=== PATIENT | female | born 1980 | race African-American/Black ===

== ENCOUNTER 2018-01-09 15:54 | Emergency (ER) | payer OTHER ==
[~2018-01-09] VITALS: Ht 152.4 cm; Wt 51.3 kg
[2018-01-09 19:13] LABS: Basophils % (auto) 0.4 % (0.0-2.0); Eosinophils # (auto) 0 uL; Mean Corpuscular Volume 102.1 fL (80.0-100.0)
[2018-01-09 19:15] LABS: Basophils # (auto) 0 uL; Hematocrit 39.2 % (36.0-46.0); Lymphocytes # (auto) 0.9 uL; Lymphocytes % (auto) 6.8 % (10.0-50.0); Mean Corpuscular Hemoglobin 33.9 pg (28.0-32.0); Mean Corpuscular Hgb Conc. 33.2 g/dL (32.0-36.0); Monocytes # (auto) 0.7 uL; Monocytes % (auto) 5.4 % (0.0-12.0); Neutrophils # (auto) 11.7 uL; Neutrophils % (auto) 87.4 % (37.0-80.0); Platelet Count (auto) 142 10^3/uL (140-450); Red Blood Cells 3.84 10^6/uL (4.0-5.20); Red Cell Distribution Width 12.6 % (11.8-14.3); White Blood Cell 13.3 10^3/uL (4.4-10.8)
[2018-01-09 19:34] LABS: Albumin 3.7 g/dL (3.4-5.0); BUN/Creatinine Ratio 22.2; Bilirubin, Total 0.3 mg/dL (0.2-1.0); Calcium 8.5 mg/dL (8.5-10.1); Potassium 3.5 mmol/L (3.5-5.1); Total Protein 7.5 g/dL (6.4-8.2)
[2018-01-09] MEDS ORDERED: LEVETIRACETAM INJ 1,000 MG in D5W 5% 100 ML IV ONE (19:45)
[2018-01-09] MEDS ORDERED: SODIUM CHLORIDE 0.9% 1,000 ML IV ONE (19:45)
[2018-01-09 21:59] LABS: Urine Bacteria FEW /hpf (None Seen); Urine Blood 2+ /uL (Negative); Urine Mucus FEW (None Seen); Urine Specific Gravity 1.015 (1.001-1.035); Urine WBC 439 /hpf (0 - 5); Urine WBC Clumps PRESENT /hpf (None Seen)
[2018-01-09 23:00] VITALS: BP 107/58
== END 2018-01-09 23:25 | disposition home or self-care (01) ==
LOC: ER 15:54 → EDBD 15:54 → ER 23:25
DX: G40.909 Epilepsy, unspecified, not intractable, without status epilepticus (principal); N39.0 Urinary tract infection, site not specified; Z87.820 Personal history of traumatic brain injury; Z46.82 Encounter for fitting and adjustment of non-vascular catheter; Z98.2 Presence of cerebrospinal fluid drainage device
CPT/HCPCS: 36415; 51702; 70450; 80053; 81001; 85025; 93005; 96365; 99285; J1953; J7030; J7060

== ENCOUNTER 2020-02-26 00:47 | Inpatient (IN) | payer OTHER ==
[~2020-02-26] VITALS: Ht 162.6 cm; Wt 69.2 kg
[2020-02-26] MEDS ORDERED: SODIUM CHLORIDE 0.9% 1,000 ML IVB ONE (01:14)
[2020-02-26 03:01] LABS: Basophils # (auto) 0.1 10 ^3/uL (0-0.2); Basophils % (auto) 0.5 % (0.0-2.0); Eosinophils # (auto) 0 10 ^3/uL (0-0.8); Eosinophils % (auto) 0.2 % (0.0-7.0); Hematocrit 38.7 % (36.0-46.0); Hemoglobin 12.6 g/dL (12.2-16.2); Lymphocytes # (auto) 1.3 10 ^3/uL (0.4-5.4); Lymphocytes % (auto) 8.5 % (10.0-50.0); Mean Corpuscular Hemoglobin 32.1 pg (28.0-32.0); Mean Corpuscular Hgb Conc. 32.6 g/dL (32.0-36.0); Mean Corpuscular Volume 98.4 fL (80.0-100.0); Monocytes # (auto) 0.7 10 ^3/uL (0-1.3); Monocytes % (auto) 4.8 % (0.0-12.0); Neutrophils # (auto) 13.1 10 ^3/uL (1.6-8.6); Platelet Count (auto) 266 10^3/uL (140-450); Red Blood Cells 3.93 10^6/uL (4.0-5.20); Red Cell Distribution Width 13.8 % (11.8-14.3); White Blood Cell 15.3 10^3/uL (4.4-10.8)
[2020-02-26 03:21] LABS: Alanine Aminotransferase 24 U/L (13-56); Albumin 3.2 g/dL (3.4-5.0); Anion Gap 4 (5-15); Aspartate Aminotransferase 18 U/L (15-37); BUN/Creatinine Ratio 32.5; Blood Urea Nitrogen 27 mg/dL (7-18); Calcium 8.3 mg/dL (8.5-10.1); Carbon Dioxide 26 mmol/L (21-32); Chloride 107 mmol/L (98-107); GFR African American 98 mL/min; GFR Non-African American 81 mL/min; Glucose 86 mg/dL (74-106); Magnesium 2.2 mg/dL (1.6-2.6); Potassium 3.9 mmol/L (3.5-5.1); Sodium 137 mmol/L (136-145)
[2020-02-26 03:26] LABS: Alkaline Phosphatase 74 U/L (45-117); Bilirubin, Total 0.2 mg/dL (0.2-1.0); Total Protein 7.5 g/dL (6.4-8.2)
[2020-02-26] MEDS: SODIUM CHLORIDE 0.9% 1,000 ML IV SCH ×2 (05:26→17:22)
[2020-02-26] MEDS ORDERED: MORPHINE SULF INJ 2 MG/ML SYRINGE 1ML IV PRN (05:30)
[2020-02-26] MEDS ORDERED: LORazepam 0.5 MG TAB PO PRN (05:30)
[2020-02-26] MEDS ORDERED: DOCUSATE SOD 100 MG CAP PO PRN (05:30)
[2020-02-26] MEDS ORDERED: METOPROLOL TARTRATE 1MG/1ML-5ML VIAL IV ONE (05:30)
[2020-02-26] MEDS ORDERED: ONDANSETRON HCL 4 MG/2 ML VIAL IV PRN (05:30)
[2020-02-26] MEDS ORDERED: ALBUTEROL SULF 2.5 MG/0.5ML(0.5%) NEB SOLN NEB PRN (05:30)
[2020-02-26] MEDS ORDERED: IPRATROPIUM BROM 0.5 MG/2.5ML INH SOL NEB PRN (05:30)
[2020-02-26] MEDS ORDERED: levETIRAcetam 500 MG/5ML INJ IV ONE (06:21)
[2020-02-26] MEDS ORDERED: LORazepam 2MG/ML-1ML VIAL IV PRN (09:00)
[2020-02-26 09:57] VITALS: BP 112/72
[2020-02-26] MEDS: ZONISAMIDE 300 MG PO SCH (10:00)
[2020-02-26] MEDS: cefTRIAXone 1GM/50ML D5W 50 ML IV SCH (10:19)
[2020-02-26] MEDS ORDERED: ZONI100C43 PO (10:25)
[2020-02-26] MEDS ORDERED: LAMO150T2 PO (10:25)
[2020-02-26] MEDS ORDERED: GUAI600T23 PO (10:25)
[2020-02-26] MEDS ORDERED: GABA300C10 PO (10:25)
[2020-02-26] MEDS ORDERED: DIVA500T4 PO (10:25)
[2020-02-26 10:35] VITALS: BP 107/78
[2020-02-26 11:07] LABS: BUN/Creatinine Ratio 38.5; Calcium 8.6 mg/dL (8.5-10.1); Potassium 3.5 mmol/L (3.5-5.1)
[2020-02-26 12:00] VITALS: BP 88/65
[2020-02-26] MEDS: lamoTRIgine 100 MG TAB PO SCH ×2 (12:57→21:41)
[2020-02-26] MEDS: GABAPENTIN 300 MG CAP PO SCH ×2 (15:01→21:40)
[2020-02-26 17:00] VITALS: BP 104/73
[2020-02-26 21:04] LABS: Urine Bacteria FEW /hpf (None Seen); Urine Blood 1+ /uL (Negative); Urine Hyaline Cast FEW /lpf (0 - 2); Urine Specific Gravity 1.009 (1.001-1.035); Urine WBC 356 /hpf (0 - 5); Urine WBC Clumps PRESENT /hpf (None Seen)
[2020-02-26 21:34] LABS: Basophils # (auto) 0 10 ^3/uL (0-0.2); Basophils % (auto) 0.3 % (0.0-2.0); Eosinophils # (auto) 0.2 10 ^3/uL (0-0.8); Eosinophils % (auto) 2.2 % (0.0-7.0); Hematocrit 39.4 % (36.0-46.0); Hemoglobin 12.4 g/dL (12.2-16.2); Lymphocytes # (auto) 2.1 10 ^3/uL (0.4-5.4); Lymphocytes % (auto) 21.6 % (10.0-50.0); Mean Corpuscular Hemoglobin 32.3 pg (28.0-32.0); Mean Corpuscular Hgb Conc. 31.5 g/dL (32.0-36.0); Mean Corpuscular Volume 102.7 fL (80.0-100.0); Monocytes # (auto) 0.8 10 ^3/uL (0-1.3); Monocytes % (auto) 8.2 % (0.0-12.0); Neutrophils # (auto) 6.5 10 ^3/uL (1.6-8.6); Neutrophils % (auto) 67.7 % (37.0-80.0); Nucleated Red Blood Cells % 0.1 %; Platelet Count (auto) 211 10^3/uL (140-450); Red Blood Cells 3.84 10^6/uL (4.0-5.20); Red Cell Distribution Width 14.4 % (11.8-14.3); White Blood Cell 9.6 10^3/uL (4.4-10.8)
[2020-02-26 21:49] LABS: Albumin 3.1 g/dL (3.4-5.0); Calcium 8.4 mg/dL (8.5-10.1); Magnesium 2.4 mg/dL (1.6-2.6); Potassium 3.9 mmol/L (3.5-5.1)
[2020-02-26 21:52] LABS: BUN/Creatinine Ratio 24.6; Bilirubin, Total 0.2 mg/dL (0.2-1.0); Total Protein 7.2 g/dL (6.4-8.2)
[2020-02-26 22:12] VITALS: BP 98/50
[2020-02-27] MEDS: SODIUM CHLORIDE 0.9% 1,000 ML IV SCH ×3 (02:00→21:26)
[2020-02-27 05:27] VITALS: BP 108/74
[2020-02-27] MEDS: GABAPENTIN 300 MG CAP PO SCH ×3 (05:53→22:12)
[2020-02-27] MEDS: ZONISAMIDE 300 MG PO SCH (08:18)
[2020-02-27 09:04] VITALS: BP 106/69
[2020-02-27] MEDS: cefTRIAXone 1GM/50ML D5W 50 ML IV SCH (10:53)
[2020-02-27] MEDS: lamoTRIgine 100 MG TAB PO SCH ×2 (10:53→22:11)
[2020-02-27 12:12] VITALS: BP 101/62
[2020-02-27 16:51] VITALS: BP 99/71
[2020-02-27] MEDS: HYDROcodone-ACET 5/325MG TAB PO PRN (21:15)
[2020-02-27 22:22] VITALS: BP 106/70
[2020-02-28] MEDS: ACETAMINOPHEN 325 MG TAB PO PRN (00:10)
[2020-02-28 04:57] VITALS: BP 97/68
[2020-02-28] MEDS: GABAPENTIN 300 MG CAP PO SCH ×3 (05:53→22:35)
[2020-02-28] MEDS: SODIUM CHLORIDE 0.9% 1,000 ML IV SCH ×2 (05:53→17:11)
[2020-02-28 09:00] VITALS: BP 97/70
[2020-02-28] MEDS: ZONISAMIDE 300 MG PO SCH (10:00)
[2020-02-28] MEDS: lamoTRIgine 100 MG TAB PO SCH ×2 (10:18→22:35)
[2020-02-28] MEDS: cefTRIAXone 1GM/50ML D5W 50 ML IV SCH (10:18)
[2020-02-28 12:59] LABS: Basophils # (auto) 0.1 10 ^3/uL (0-0.2); Basophils % (auto) 0.8 % (0.0-2.0); Eosinophils # (auto) 0.1 10 ^3/uL (0-0.8); Eosinophils % (auto) 2.2 % (0.0-7.0); Hemoglobin 11.1 g/dL (12.2-16.2); Lymphocytes # (auto) 2.3 10 ^3/uL (0.4-5.4); Lymphocytes % (auto) 34.8 % (10.0-50.0); Mean Corpuscular Hemoglobin 32.4 pg (28.0-32.0); Mean Corpuscular Hgb Conc. 32.6 g/dL (32.0-36.0); Mean Corpuscular Volume 99.5 fL (80.0-100.0); Monocytes # (auto) 0.5 10 ^3/uL (0-1.3); Monocytes % (auto) 7.1 % (0.0-12.0); Neutrophils # (auto) 3.7 10 ^3/uL (1.6-8.6); Neutrophils % (auto) 55.1 % (37.0-80.0); Platelet Count (auto) 205 10^3/uL (140-450); Red Blood Cells 3.42 10^6/uL (4.0-5.20); Red Cell Distribution Width 14.3 % (11.8-14.3); White Blood Cell 6.7 10^3/uL (4.4-10.8)
[2020-02-28 13:00] VITALS: BP 92/65
[2020-02-28 13:15] LABS: BUN/Creatinine Ratio 14.5; Potassium 3.9 mmol/L (3.5-5.1)
[2020-02-28 17:00] VITALS: BP 104/62
[2020-02-28] MEDS ORDERED: METOPROLOL TARTRATE 1MG/1ML-5ML VIAL IV PRN (19:15)
[2020-02-28 22:00] VITALS: BP 102/64
[2020-02-29] MEDS: ACETAMINOPHEN 325 MG TAB PO PRN (01:23)
[2020-02-29] MEDS: SODIUM CHLORIDE 0.9% 1,000 ML IV SCH ×2 (03:26→16:16)
[2020-02-29 05:00] VITALS: BP 101/61
[2020-02-29] MEDS: GABAPENTIN 300 MG CAP PO SCH ×2 (05:57→16:17)
[2020-02-29] MEDS: HYDROcodone-ACET 5/325MG TAB PO PRN ×2 (07:24→16:17)
[2020-02-29] MEDS: cefTRIAXone 1GM/50ML D5W 50 ML IV SCH (08:36)
[2020-02-29] MEDS: ZONISAMIDE 300 MG PO SCH (08:38)
[2020-02-29] MEDS: lamoTRIgine 100 MG TAB PO SCH (08:39)
[2020-02-29 08:43] VITALS: BP 97/59
[2020-02-29 13:00] VITALS: BP 101/59
[2020-02-29 15:04] VITALS: BP 101/59
[2020-02-29 17:00] VITALS: BP 101/61
== END 2020-02-29 16:00 | disposition home or self-care (01) | DRG 101 ==
LOC: EDBD 00:47 → ER 00:48 → TELE 00:49 → TELE-EAST 09:25
PROVIDERS: ADMIT Hospitalist; ATTEND Internal Medicine
DX: G40.201 Localization-related (focal) (partial) symptomatic epilepsy and epileptic syndromes with complex partial seizures, not intractable, with status epilepticus (principal); E44.0 Moderate protein-calorie malnutrition; K59.00 Constipation, unspecified; D72.829 Elevated white blood cell count, unspecified; F09 Unspecified mental disorder due to known physiological condition; J45.909 Unspecified asthma, uncomplicated; Z79.899 Other long term (current) drug therapy; Z74.01 Bed confinement status; Z87.820 Personal history of traumatic brain injury; Z91.19 Patient's noncompliance with other medical treatment and regimen; Z98.2 Presence of cerebrospinal fluid drainage device; Z68.26 Body mass index [BMI] 26.0-26.9, adult
CPT/HCPCS: 36415; 70450; 71045; 74018; 80048; 80053; 80164; 81001; 81025; 83735; 84484; 85025; 87086; 93005; 96361; 96365; G0378; J0696; J7060

== ENCOUNTER 2023-10-10 11:51 | Inpatient (IN) | payer OTHER, MEDICAID ==
[~2023-10-10] VITALS: Ht 167.6 cm; Wt 83.2 kg
[~2023-10-10 11:51] MED LIST: ALBU0.084 IN; BACL10TA PO; BACL20TA PO; DIVA-93 PO; DONETAB6 PO; GABA-1250 PO; GABA-1308 PO; GUAI600T23 PO; HYDR-2549 PO; LACT10SO32 PO; LAMO150T2 PO; LAMO150T26 PO; LORA-1123 PO; LUBI24CA6 PO; MIRT1TAB39 PO; PSEU120T18 PO; QUET150T2 PO; QUET1TAB11 PO; ZONI100C43 PO; [UNRECOGNIZED DRUG - CODE] PO
[2023-10-10] MEDS ORDERED: ACETAMINOPHEN 650 MG RECT SUPP PR ONE (12:30)
[2023-10-10 12:45] VITALS: PULSE 138; RESP 26; O2SAT 96
[2023-10-10] MEDS ORDERED: cefTRIAXone 1GM/50ML D5W 50 ML IV ONE (12:45)
[2023-10-10] MEDS ORDERED: AZITHROMYCIN 500MG/ 250ML 250 ML IV ONE (12:45)
[2023-10-10] MEDS ORDERED: SODIUM CHLORIDE 0.9% 1,000 ML IV ONE (12:45)
[2023-10-10] MEDS ORDERED: SODIUM CHLORIDE 0.9% 500 ML IVB ONE (12:45)
[2023-10-10 13:25] LABS: Basophils # (auto) 0 10 ^3/uL (0-0.2); Basophils % (auto) 0.3 % (0.0-2.0); Eosinophils # (auto) 0 10 ^3/uL (0-0.8); Eosinophils % (auto) 0.1 % (0.0-7.0); Hemoglobin 14.2 g/dL (12.2-16.2); Lymphocytes # (auto) 1.7 10 ^3/uL (0.4-5.4); Lymphocytes % (auto) 19.4 % (10.0-50.0); Mean Corpuscular Hemoglobin 31.7 pg (28.0-32.0); Mean Corpuscular Hgb Conc. 32.4 g/dL (32.0-36.0); Monocytes % (auto) 11.3 % (0.0-12.0); Neutrophils % (auto) 68.9 % (37.0-80.0); Nucleated Red Blood Cells % 0.4 %; Red Blood Cells 4.48 10^6/uL (4.0-5.20); Red Cell Distribution Width 14.7 % (11.8-14.3); White Blood Cell 8.7 10^3/uL (4.4-10.8)
[2023-10-10 13:44] LABS: Albumin 3.7 g/dL (3.2-4.8); Alkaline Phosphatase 66 U/L (46-116); Anion Gap 10 (5-15); Aspartate Aminotransferase 26 U/L (13-40); BUN/Creatinine Ratio 13.7 (10.0-20.0); Blood Urea Nitrogen 20 mg/dL (9-23); Calcium 8.3 mg/dL (8.7-10.4); Carbon Dioxide 22 mmol/L (20-30); Chloride 105 mmol/L (98-107); Glucose 99 mg/dL (74-106); Magnesium 2.2 mg/dL (1.6-2.6); Potassium 4.1 mmol/L (3.5-5.1); Sodium 137 mmol/L (136-145)
[2023-10-10 13:45] LABS: Bilirubin, Total < 0.2 mg/dL (0.2-1.0); Total Protein 7.7 g/dL (5.7-8.2)
[2023-10-10 13:49] LABS: Alanine Aminotransferase < 9 U/L (7-40); INR 1.11 (0.9-1.15); Partial Thromboplastin Time 29.9 SEC (24.5-34.5); Prothrombin Time 11.8 sec (9.3-11.8)
[2023-10-10 15:26] LABS: COVID19 ANTIGEN SOFIA FIA POSITIVE (NEGATIVE)
[2023-10-10 15:28] LABS: Urine Bacteria MOD /hpf (None Seen); Urine Blood 3+ /uL (Negative); Urine Clarity CLOUDY (Clear); Urine Color Yellow (Yellow); Urine Protein, UAD 2+ (Negative); Urine Specific Gravity 1.017 (1.001-1.035); Urine Urobilinogen Normal (Negative); Urine WBC 2293 /hpf (0 - 5); Urine WBC Clumps PRESENT /hpf (None Seen); Urine pH 6.5 (5.0-8.0)
[2023-10-10 15:30] LABS: Amphetamine Screen, Urine Neg (NEGATIVE); Barbiturate Scree,Urine Neg (NEGATIVE); Benzodiazephine Screen, Urine Neg (NEGATIVE); Cannabinoid Screen, Urine Neg (NEGATIVE); Cocaine Screen, Urine Neg (NEGATIVE); Opiate Scree,Urine Neg (NEGATIVE); Phencyclidine Screen, Urine Neg (NEGATIVE)
[2023-10-10] MEDS ORDERED: MORPHINE SULFATE INJ 2 MG/ml SYRG IV PRN (18:00)
[2023-10-10] MEDS ORDERED: ONDANSETRON HCL 4 MG/2 ML VIAL IV PRN (18:00)
[2023-10-10] MEDS ORDERED: REMDESIVIR PER PHARMACY 0 ML IV SCH (18:00)
[2023-10-10] MEDS ORDERED: NITROGLYCERIN 0.4 MG SL TAB SL PRN (18:00)
[2023-10-10] MEDS: SODIUM CHLORIDE 0.9% 1,000 ML IV SCH (18:37)
[2023-10-10] MEDS ORDERED: LORazepam 2MG/ML-1ML VIAL IV PRN (18:45)
[2023-10-10 19:43] LABS: Base Excess -1.6 mmol/L (-2.0-2.0)
[2023-10-10] MEDS ORDERED: ETOMIDATE (2MG/ML) 20ML VIAL IV ONE ×3 (20:03→22:30)
[2023-10-10] MEDS ORDERED: ROCURONIUM 10MG/ML 10ML VIAL IV ONE ×3 (20:03→22:30)
[2023-10-10] MEDS ORDERED: MIDAZOLAM DRIP 50 mg/50mL 50 ML IV ONE (20:07)
[2023-10-10] MEDS ORDERED: NOREPINEPHRINE 8 MG/250ML KIT 250 ML IV ONE (20:12)
[2023-10-10] MEDS: NOREPINEPHRINE 8 MG/250ML KIT 250 ML IV SCH (20:26)
[2023-10-10] MEDS: MIDAZOLAM DRIP 50 mg/50mL 50 ML IV SCH (20:45)
[2023-10-10 21:09] VITALS: BP 119/66; PULSE 133; RESP 24; O2SAT 98
[2023-10-10 22:20] VITALS: BP 97/52; PULSE 129; RESP 31; O2SAT 93
[2023-10-10 22:25] LABS: Base Excess -4.7 mmol/L (-2.0-2.0)
[2023-10-10 22:30] VITALS: PULSE 136; RESP 24; O2SAT 97
[2023-10-10] MEDS ORDERED: NOREPINEPHRINE 8 MG/250ML KIT 250 ML IV SCH (22:30)
[2023-10-10] MEDS ORDERED: MIDAZOLAM DRIP 50 mg/50mL 50 ML IV SCH (22:30)
[2023-10-10] MEDS: levETIRAcetam 500 mg/100ml 100 ML IV SCH (22:34)
[2023-10-10] MEDS: IPRATROPIUM BROM 0.5 MG/2.5ML INH SOL NEB SCH (22:39)
[2023-10-10] MEDS: ACETYLCYSTEINE 20%(200MG/ML) SOL 4ML NEB SCH (22:39)
[2023-10-10] MEDS: ALBUTEROL SULF 2.5 MG/0.5ML(0.5%) NEB SOLN NEB SCH (22:39)
[2023-10-10] MEDS: ACETAMINOPHEN 650 MG RECT SUPP PR PRN ×2 (23:00→23:45)
[2023-10-11] VITALS (83 sets, daily range): BP systolic 95–136; BP diastolic 54–105; PULSE 95–139; RESP 26–36; TEMP 96.6–102.4; O2SAT 96–100
[2023-10-11 00:19] LABS: Base Excess -5.9 mmol/L (-2.0-2.0)
[2023-10-11] MEDS: IPRATROPIUM BROM 0.5 MG/2.5ML INH SOL NEB SCH ×6 (02:22→22:25)
[2023-10-11] MEDS: ALBUTEROL SULF 2.5 MG/0.5ML(0.5%) NEB SOLN NEB SCH ×6 (02:22→22:24)
[2023-10-11] MEDS: ACETAMINOPHEN 650 MG RECT SUPP PR PRN (04:53)
[2023-10-11] MEDS: SODIUM CHLORIDE 0.9% 1,000 ML IV SCH ×2 (04:53→15:46)
[2023-10-11] MEDS: ACETYLCYSTEINE 20%(200MG/ML) SOL 4ML NEB SCH ×3 (06:04→22:25)
[2023-10-11 08:29] LABS: Hemoglobin 12.8 g/dL (12.2-16.2)
[2023-10-11 08:31] LABS: Hematocrit 39.5 % (36.0-46.0); Mean Corpuscular Hemoglobin 31.7 pg (28.0-32.0); Mean Corpuscular Hgb Conc. 32.3 g/dL (32.0-36.0); Mean Corpuscular Volume 98.1 fL (80.0-100.0); Red Blood Cells 4.03 10^6/uL (4.0-5.20); Red Cell Distribution Width 14.4 % (11.8-14.3)
[2023-10-11 08:42] LABS: White Blood Cell 34.6 10^3/uL (4.4-10.8)
[2023-10-11 08:42] LABS: Base Excess -6.1 mmol/L (-2.0-2.0)
[2023-10-11 08:43] LABS: Alanine Aminotransferase 10 U/L (7-40); Albumin 3.3 g/dL (3.2-4.8); Alkaline Phosphatase 66 U/L (46-116); Anion Gap 10 (5-15); Aspartate Aminotransferase 29 U/L (13-40); BUN/Creatinine Ratio 9.2 (10.0-20.0); Bilirubin, Total 0.2 mg/dL (0.2-1.0); Blood Urea Nitrogen 11 mg/dL (9-23); Calcium 7.9 mg/dL (8.5-10.1); Carbon Dioxide 21 mmol/L (20-30); Chloride 110 mmol/L (98-107); Glucose 213 mg/dL (74-106); Potassium 3.7 mmol/L (3.5-5.1); Sodium 141 mmol/L (136-145); Total Protein 6.8 g/dL (5.7-8.2)
[2023-10-11 08:44] LABS: Band Neutrophils % (manual) 0; Basophils % (manual) 0 (0.0-2.0); Blast Cells 0; Eosinophils % (manual) 0 (0-7); Metamyelocytes % 0; Myelocytes % 0; Promyelocytes % 0; Reactive Lymphocytes 0
[2023-10-11] MEDS ORDERED: cefTRIAXone 1GM/50ML D5W 50 ML IV SCH (09:00)
[2023-10-11] MEDS: NOREPINEPHRINE 8 MG/250ML KIT 250 ML IV SCH ×3 (09:40→22:33)
[2023-10-11] MEDS ORDERED: DexAMETHasone SOD PHOS 10MG/1ML VIAL INJ IV SCH (10:00)
[2023-10-11] MEDS ORDERED: ENOXAPARIN SOD 40 MG/0.4 ML SYRINGE SC SCH ×2 (10:00→10:15)
[2023-10-11] MEDS ORDERED: REMDESIVIR 200 MG in NS 210ml LOADING DOSE ADULT IV ONE (10:00)
[2023-10-11 10:19] LABS: Rapid Influenza A Negative (Negative); Rapid Influenza B Negative (Negative)
[2023-10-11] MEDS: levETIRAcetam 500 mg/100ml 100 ML IV SCH ×2 (11:17→22:20)
[2023-10-11] MEDS: PANTOPRAZOLE 40 MG/10 ML VIAL INJ IV SCH (11:17)
[2023-10-11] MEDS: fentaNYL Drip 2500mCg/250mlNS 250 ML IV SCH (11:20)
[2023-10-11 12:45] LABS: Lactic Acid w/Reflex 3.2 mmol/L (0.4-2.0)
[2023-10-11] MEDS: MIDAZOLAM DRIP 50 mg/50mL 50 ML IV SCH ×2 (13:35→19:21)
[2023-10-11] MEDS: AZITHROMYCIN 500MG/ 250ML 250 ML IV SCH (13:35)
[2023-10-11 13:45] LABS: Lymphocytes % (manual) 8 (10.0-50.0); Monocytes % (manual) 6 (0-12)
[2023-10-11 13:46] LABS: Platelet Estimate Decrea
[2023-10-11 13:56] LABS: INR 1.23 (0.9-1.15); Partial Thromboplastin Time 37.2 SEC (24.5-34.5)
[2023-10-11] MEDS ORDERED: VANCOMYCIN PER PHARMACY 0 MG IV SCH (14:30)
[2023-10-11] MEDS ORDERED: VANCOMYCIN 1GM/200ML 200 ML IV ONE (15:00)
[2023-10-11] MEDS ORDERED: MEROPENEM 1GM IVPB 100 ML IV ONE (15:30)
[2023-10-11 16:28] LABS: Erythrocyte Sedimentation Rate 13 mm/hr (0-20)
[2023-10-12] VITALS (105 sets, daily range): BP systolic 81–124; BP diastolic 43–73; PULSE 85–112; RESP 24–29; TEMP 95.5–100.2; O2SAT 90–99
[2023-10-12] MEDS: MEROPENEM 1GM IVPB 100 ML IV SCH ×3 (00:06→18:16)
[2023-10-12] MEDS: SODIUM CHLORIDE 0.9% 1,000 ML IV SCH ×3 (01:23→21:34)
[2023-10-12] MEDS: MIDAZOLAM DRIP 50 mg/50mL 50 ML IV SCH ×4 (01:25→21:51)
[2023-10-12] MEDS: ALBUTEROL SULF 2.5 MG/0.5ML(0.5%) NEB SOLN NEB SCH ×6 (02:27→22:21)
[2023-10-12] MEDS: IPRATROPIUM BROM 0.5 MG/2.5ML INH SOL NEB SCH ×6 (02:27→22:21)
[2023-10-12 04:21] LABS: Chloride 115 mmol/L (98-107); Potassium 3.3 mmol/L (3.5-5.1); Sodium 144 mmol/L (136-145)
[2023-10-12 04:22] LABS: Anion Gap 10 (5-15); Calcium 7.7 mg/dL (8.7-10.4); Carbon Dioxide 19 mmol/L (20-30)
[2023-10-12 04:27] LABS: BUN/Creatinine Ratio 10.7 (10.0-20.0); Blood Urea Nitrogen 8 mg/dL (9-23); Glucose 255 mg/dL (74-106)
[2023-10-12 04:28] LABS: Basophils # (auto) 0 10 ^3/uL (0-0.2); Basophils % (auto) 0.3 % (0.0-2.0); Eosinophils # (auto) 0 10 ^3/uL (0-0.8); Hematocrit 32.1 % (36.0-46.0); Hemoglobin 10.4 g/dL (12.2-16.2); Mean Corpuscular Hemoglobin 31.5 pg (28.0-32.0); Mean Corpuscular Hgb Conc. 32.4 g/dL (32.0-36.0); Mean Corpuscular Volume 97.2 fL (80.0-100.0); Monocytes % (auto) 5.8 % (0.0-12.0); Neutrophils # (auto) 15.2 10 ^3/uL (1.6-8.6); Neutrophils % (auto) 87.9 % (37.0-80.0); Red Cell Distribution Width 14.6 % (11.8-14.3); White Blood Cell 17.3 10^3/uL (4.4-10.8)
[2023-10-12] MEDS: ACETYLCYSTEINE 20%(200MG/ML) SOL 4ML NEB SCH ×3 (06:09→18:25)
[2023-10-12 08:36] LABS: Base Excess -2.5 mmol/L (-2.0-2.0)
[2023-10-12] MEDS: fentaNYL Drip 2500mCg/250mlNS 250 ML IV SCH ×2 (09:45→21:57)
[2023-10-12] MEDS: ENOXAPARIN SOD 40 MG/0.4 ML SYRINGE SC SCH (10:00)
[2023-10-12] MEDS: PANTOPRAZOLE 40 MG/10 ML VIAL INJ IV SCH (10:10)
[2023-10-12] MEDS: AZITHROMYCIN 500MG/ 250ML 250 ML IV SCH (10:10)
[2023-10-12] MEDS: levETIRAcetam 500 mg/100ml 100 ML IV SCH ×2 (10:11→21:34)
[2023-10-12] MEDS: VANCOMYCIN 1GM/200ML 200 ML IV SCH (10:12)
[2023-10-12] MEDS ORDERED: SODIUM CHLORIDE 0.9% 250 ML IV ONE (11:30)
[2023-10-12] MEDS: POTASSIUM CHL 20MEQ/100ML 100 ML IV SCH ×2 (14:38→18:12)
[2023-10-12] MEDS: REMDESIVIR 100mg 100 MG in SODIUM CHL 0.9% 230 ML IV SCH (16:10)
[2023-10-12] MEDS: NOREPINEPHRINE 8 MG/250ML KIT 250 ML IV SCH ×2 (20:02→23:25)
[2023-10-13] VITALS (112 sets, daily range): BP systolic 91–119; BP diastolic 45–74; PULSE 87–112; RESP 12–28; TEMP 97–99.5; O2SAT 78–98
[2023-10-13] MEDS: MEROPENEM 1GM IVPB 100 ML IV SCH ×3 (00:19→19:54)
[2023-10-13] MEDS: IPRATROPIUM BROM 0.5 MG/2.5ML INH SOL NEB SCH ×6 (02:14→22:07)
[2023-10-13] MEDS: ALBUTEROL SULF 2.5 MG/0.5ML(0.5%) NEB SOLN NEB SCH ×6 (02:14→22:07)
[2023-10-13] MEDS: NOREPINEPHRINE 8 MG/250ML KIT 250 ML IV SCH (03:00)
[2023-10-13 03:52] LABS: Basophils # (auto) 0 10 ^3/uL (0-0.2); Basophils % (auto) 0.1 % (0.0-2.0); Eosinophils # (auto) 0 10 ^3/uL (0-0.8); Hematocrit 29.7 % (36.0-46.0); Hemoglobin 9.8 g/dL (12.2-16.2); Lymphocytes # (auto) 1.2 10 ^3/uL (0.4-5.4); Lymphocytes % (auto) 6.3 % (10.0-50.0); Mean Corpuscular Hgb Conc. 32.8 g/dL (32.0-36.0); Mean Corpuscular Volume 97.3 fL (80.0-100.0); Monocytes % (auto) 5.1 % (0.0-12.0); Neutrophils # (auto) 17.1 10 ^3/uL (1.6-8.6); Neutrophils % (auto) 88.5 % (37.0-80.0); Red Blood Cells 3.05 10^6/uL (4.0-5.20); White Blood Cell 19.3 10^3/uL (4.4-10.8)
[2023-10-13 04:15] LABS: Albumin 2.5 g/dL (3.2-4.8); Alkaline Phosphatase 50 U/L (46-116); Anion Gap 7 (5-15); Aspartate Aminotransferase 27 U/L (13-40); BUN/Creatinine Ratio 15.4 (10.0-20.0); Bilirubin, Total 0.2 mg/dL (0.2-1.0); Blood Urea Nitrogen 10 mg/dL (9-23); Calcium 7.5 mg/dL (8.7-10.4); Carbon Dioxide 21 mmol/L (20-30); Chloride 120 mmol/L (98-107); Glucose 123 mg/dL (74-106); Potassium 3.2 mmol/L (3.5-5.1); Sodium 148 mmol/L (136-145); Total Protein 5.2 g/dL (5.7-8.2)
[2023-10-13 04:21] LABS: Alanine Aminotransferase 9 U/L (7-40)
[2023-10-13] MEDS: VANCOMYCIN 1GM/200ML 200 ML IV SCH ×2 (04:29→22:00)
[2023-10-13] MEDS: MIDAZOLAM DRIP 50 mg/50mL 50 ML IV SCH ×3 (05:26→19:50)
[2023-10-13] MEDS: SODIUM CHLORIDE 0.9% 1,000 ML IV SCH (06:11)
[2023-10-13] MEDS: ACETYLCYSTEINE 20%(200MG/ML) SOL 4ML NEB SCH ×2 (06:45→14:05)
[2023-10-13 07:07] LABS: Base Excess -5.7 mmol/L (-2.0-2.0)
[2023-10-13] MEDS ORDERED: SOD CHL 0.45% 1,000 ML IV SCH ×2 (07:15→11:15)
[2023-10-13] MEDS: POTASSIUM CHL 20MEQ/100ML 100 ML IV SCH ×2 (08:01→10:22)
[2023-10-13] MEDS: ENOXAPARIN SOD 40 MG/0.4 ML SYRINGE SC SCH (10:00)
[2023-10-13] MEDS: levETIRAcetam 500 mg/100ml 100 ML IV SCH ×2 (10:33→22:00)
[2023-10-13] MEDS: PANTOPRAZOLE 40 MG/10 ML VIAL INJ IV SCH (10:33)
[2023-10-13] MEDS: AZITHROMYCIN 500MG/ 250ML 250 ML IV SCH (10:33)
[2023-10-13] MEDS ORDERED: IOHEXOL 350 MG/ML 100ML IJ ONE (13:37)
[2023-10-13] MEDS: REMDESIVIR 100mg 100 MG in SODIUM CHL 0.9% 230 ML IV SCH (15:36)
[2023-10-13] MEDS: Jevity 1.2 Cal/Fiber 1 Liter GT SCH (19:00)
[2023-10-14] VITALS (108 sets, daily range): BP systolic 88–127; BP diastolic 43–82; PULSE 106–135; RESP 25–32; TEMP 98.2–102.1; O2SAT 86–98
[2023-10-14] MEDS: MIDAZOLAM DRIP 50 mg/50mL 50 ML IV SCH ×3 (00:46→23:14)
[2023-10-14] MEDS: IPRATROPIUM BROM 0.5 MG/2.5ML INH SOL NEB SCH ×6 (02:20→22:23)
[2023-10-14] MEDS: ALBUTEROL SULF 2.5 MG/0.5ML(0.5%) NEB SOLN NEB SCH ×6 (02:21→22:23)
[2023-10-14] MEDS: fentaNYL Drip 2500mCg/250mlNS 250 ML IV SCH ×2 (02:58→22:43)
[2023-10-14] MEDS: NOREPINEPHRINE 8 MG/250ML KIT 250 ML IV SCH (03:00)
[2023-10-14 06:55] LABS: Hematocrit 32.2 % (36.0-46.0); Hemoglobin 10.5 g/dL (12.2-16.2); Mean Corpuscular Hemoglobin 31.8 pg (28.0-32.0); Mean Corpuscular Hgb Conc. 32.7 g/dL (32.0-36.0); Mean Corpuscular Volume 97.2 fL (80.0-100.0); Red Blood Cells 3.31 10^6/uL (4.0-5.20); Red Cell Distribution Width 15.8 % (11.8-14.3); White Blood Cell 14.3 10^3/uL (4.4-10.8)
[2023-10-14 07:01] LABS: Anion Gap 8 (5-15); Calcium 7.5 mg/dL (8.7-10.4); Carbon Dioxide 21 mmol/L (20-30); Chloride 119 mmol/L (98-107); Potassium 3.9 mmol/L (3.5-5.1); Sodium 148 mmol/L (136-145)
[2023-10-14 07:07] LABS: BUN/Creatinine Ratio 15.2 (10.0-20.0); Blood Urea Nitrogen 10 mg/dL (9-23); Glucose 76 mg/dL (74-106)
[2023-10-14 07:17] LABS: Base Excess -4.9 mmol/L (-2.0-2.0)
[2023-10-14 07:26] LABS: Basophils % (manual) 0 (0.0-2.0); Blast Cells 0; Eosinophils % (manual) 0 (0-7); Promyelocytes % 0; Reactive Lymphocytes 0
[2023-10-14] MEDS: MEROPENEM 1GM IVPB 100 ML IV SCH ×3 (08:06→17:33)
[2023-10-14] MEDS: ACETAMINOPHEN 650 MG RECT SUPP PR PRN ×2 (08:06→20:17)
[2023-10-14 08:51] LABS: Band Neutrophils % (manual) 11; Lymphocytes % (manual) 14 (10.0-50.0); Metamyelocytes % 4; Monocytes % (manual) 9 (0-12); Myelocytes % 2; Platelet Estimate Adequate
[2023-10-14] MEDS: ENOXAPARIN SOD 40 MG/0.4 ML SYRINGE SC SCH (10:39)
[2023-10-14] MEDS: AZITHROMYCIN 500MG/ 250ML 250 ML IV SCH (10:39)
[2023-10-14] MEDS: levETIRAcetam 500 mg/100ml 100 ML IV SCH ×2 (10:39→22:28)
[2023-10-14] MEDS: PANTOPRAZOLE 40 MG/10 ML VIAL INJ IV SCH (10:39)
[2023-10-14] MEDS: VANCOMYCIN 1GM/200ML 200 ML IV SCH (12:26)
[2023-10-14] MEDS: REMDESIVIR 100mg 100 MG in SODIUM CHL 0.9% 230 ML IV SCH (15:32)
[2023-10-14] MEDS ORDERED: LIDOCAINE 1% (LOCAL ANESTH.) PF 5ml SDV ID ONE (17:00)
[2023-10-14] MEDS: FREE WATER GT SCH (18:00)
[2023-10-14] MEDS: VALPROIC ACID 250 MG/5 ML ORAL SOLN GT SCH (22:24)
[2023-10-14] MEDS: lamoTRIgine 100 MG TAB PO SCH (22:24)
[2023-10-14] MEDS: SODIUM CHLOR 0.9% PF (SALINE LOCK) 10ML VIAL/SYR IV SCH (22:26)
[2023-10-15] VITALS (105 sets, daily range): BP systolic 81–127; BP diastolic 51–89; PULSE 86–158; RESP 20–30; TEMP 98.1–100.6; O2SAT 88–98
[2023-10-15] MEDS: MEROPENEM 1GM IVPB 100 ML IV SCH ×3 (00:41→15:51)
[2023-10-15] MEDS: IPRATROPIUM BROM 0.5 MG/2.5ML INH SOL NEB SCH ×6 (02:38→22:27)
[2023-10-15] MEDS: ALBUTEROL SULF 2.5 MG/0.5ML(0.5%) NEB SOLN NEB SCH ×6 (02:38→22:27)
[2023-10-15] MEDS: VANCOMYCIN 1GM/200ML 200 ML IV SCH ×2 (03:06→18:20)
[2023-10-15] MEDS: fentaNYL Drip 2500mCg/250mlNS 250 ML IV SCH ×2 (03:51→17:57)
[2023-10-15 04:02] LABS: Calcium 7.5 mg/dL (8.7-10.4); Chloride 117 mmol/L (98-107); Sodium 146 mmol/L (136-145)
[2023-10-15 04:03] LABS: Anion Gap 6 (5-15); Carbon Dioxide 23 mmol/L (20-30)
[2023-10-15 04:08] LABS: BUN/Creatinine Ratio 12.7 (10.0-20.0); Blood Urea Nitrogen 8 mg/dL (9-23); Glucose 86 mg/dL (74-106)
[2023-10-15 04:38] LABS: Hematocrit 32.2 % (36.0-46.0); Hemoglobin 10.2 g/dL (12.2-16.2); Mean Corpuscular Hgb Conc. 31.6 g/dL (32.0-36.0); Mean Corpuscular Volume 98.3 fL (80.0-100.0); Red Blood Cells 3.28 10^6/uL (4.0-5.20); Red Cell Distribution Width 16.6 % (11.8-14.3); White Blood Cell 9.1 10^3/uL (4.4-10.8)
[2023-10-15 04:44] LABS: Basophils % (manual) 0 (0.0-2.0); Blast Cells 0; Eosinophils % (manual) 0 (0-7); Metamyelocytes % 0; Myelocytes % 0; Promyelocytes % 0; Reactive Lymphocytes 0
[2023-10-15 05:15] LABS: Band Neutrophils % (manual) 15; Lymphocytes % (manual) 29 (10.0-50.0); Monocytes % (manual) 18 (0-12); Platelet Estimate Adequate
[2023-10-15] MEDS: VALPROIC ACID 250 MG/5 ML ORAL SOLN GT SCH ×3 (06:24→21:46)
[2023-10-15] MEDS: FREE WATER GT SCH ×4 (06:24→17:39)
[2023-10-15] MEDS: MIDAZOLAM DRIP 50 mg/50mL 50 ML IV SCH ×3 (07:33→17:56)
[2023-10-15 07:49] LABS: Base Excess -2.7 mmol/L (-2.0-2.0)
[2023-10-15] MEDS: PANTOPRAZOLE 40 MG/10 ML VIAL INJ IV SCH (10:35)
[2023-10-15] MEDS: levETIRAcetam 500 mg/100ml 100 ML IV SCH ×2 (10:35→21:48)
[2023-10-15] MEDS: AZITHROMYCIN 500MG/ 250ML 250 ML IV SCH (10:35)
[2023-10-15] MEDS: SODIUM CHLOR 0.9% PF (SALINE LOCK) 10ML VIAL/SYR IV SCH ×2 (10:35→21:48)
[2023-10-15] MEDS: lamoTRIgine 100 MG TAB PO SCH ×2 (10:36→21:51)
[2023-10-15] MEDS: ENOXAPARIN SOD 40 MG/0.4 ML SYRINGE SC SCH (10:36)
[2023-10-15] MEDS: REMDESIVIR 100mg 100 MG in SODIUM CHL 0.9% 230 ML IV SCH (14:56)
[2023-10-15] MEDS: NOREPINEPHRINE 8 MG/250ML KIT 250 ML IV SCH (23:30)
[2023-10-16] VITALS (107 sets, daily range): BP systolic 86–135; BP diastolic 55–91; PULSE 81–125; RESP 22–26; TEMP 96.6–100; O2SAT 91–100
[2023-10-16] MEDS: FREE WATER GT SCH ×4 (00:20→17:38)
[2023-10-16] MEDS: MEROPENEM 1GM IVPB 100 ML IV SCH ×3 (00:20→16:06)
[2023-10-16] MEDS: MIDAZOLAM DRIP 50 mg/50mL 50 ML IV SCH ×5 (00:30→23:05)
[2023-10-16] MEDS: IPRATROPIUM BROM 0.5 MG/2.5ML INH SOL NEB SCH ×6 (02:19→22:31)
[2023-10-16] MEDS: ALBUTEROL SULF 2.5 MG/0.5ML(0.5%) NEB SOLN NEB SCH ×6 (02:19→22:31)
[2023-10-16 03:45] LABS: Hematocrit 34.1 % (36.0-46.0); Hemoglobin 11.1 g/dL (12.2-16.2); Mean Corpuscular Hemoglobin 31.8 pg (28.0-32.0); Mean Corpuscular Hgb Conc. 32.5 g/dL (32.0-36.0); Red Blood Cells 3.48 10^6/uL (4.0-5.20); Red Cell Distribution Width 16.1 % (11.8-14.3); White Blood Cell 11.6 10^3/uL (4.4-10.8)
[2023-10-16 04:03] LABS: Alanine Aminotransferase 30 U/L (7-40); Albumin 2.4 g/dL (3.2-4.8); Alkaline Phosphatase 70 U/L (46-116); Anion Gap 10 (5-15); Aspartate Aminotransferase 71 U/L (13-40); Bilirubin, Total 0.2 mg/dL (0.2-1.0); Blood Urea Nitrogen 6 mg/dL (9-23); Calcium 7.6 mg/dL (8.7-10.4); Carbon Dioxide 21 mmol/L (20-30); Chloride 114 mmol/L (98-107); Glucose 90 mg/dL (74-106); Potassium 3.7 mmol/L (3.5-5.1); Sodium 145 mmol/L (136-145); Total Protein 5.3 g/dL (5.7-8.2)
[2023-10-16 04:28] LABS: Basophils % (manual) 0 (0.0-2.0); Blast Cells 0; Eosinophils % (manual) 0 (0-7); Metamyelocytes % 0; Myelocytes % 0; Promyelocytes % 0; Reactive Lymphocytes 0
[2023-10-16] MEDS: GABAPENTIN 300 MG CAP PO SCH ×3 (06:17→22:30)
[2023-10-16] MEDS: VALPROIC ACID 250 MG/5 ML ORAL SOLN GT SCH ×3 (06:17→22:30)
[2023-10-16 07:04] LABS: Band Neutrophils % (manual) 9; Lymphocytes % (manual) 27 (10.0-50.0); Monocytes % (manual) 3 (0-12); Platelet Estimate Adequate
[2023-10-16 07:05] LABS: Anisocytosis Slight
[2023-10-16] MEDS: fentaNYL Drip 2500mCg/250mlNS 250 ML IV SCH ×2 (07:27→23:08)
[2023-10-16] MEDS: VANCOMYCIN 1GM/200ML 200 ML IV SCH (08:57)
[2023-10-16] MEDS: lamoTRIgine 100 MG TAB PO SCH ×2 (10:09→22:30)
[2023-10-16] MEDS: levETIRAcetam 500 mg/100ml 100 ML IV SCH (10:09)
[2023-10-16] MEDS: PANTOPRAZOLE 40 MG/10 ML VIAL INJ IV SCH (10:09)
[2023-10-16] MEDS: ENOXAPARIN SOD 40 MG/0.4 ML SYRINGE SC SCH (10:09)
[2023-10-16] MEDS: SODIUM CHLOR 0.9% PF (SALINE LOCK) 10ML VIAL/SYR IV SCH ×2 (10:10→22:31)
[2023-10-16 13:28] LABS: Base Excess 0.6 mmol/L (-2.0-2.0)
[2023-10-16 13:30] LABS: Base Excess -1.4 mmol/L (-2.0-2.0)
[2023-10-16] MEDS: levETIRAcetam 1000 mg/100ml 100 ML IV SCH (22:30)
[2023-10-16] MEDS: NOREPINEPHRINE 8 MG/250ML KIT 250 ML IV SCH (23:06)
[2023-10-17] VITALS (107 sets, daily range): BP systolic 81–145; BP diastolic 48–96; PULSE 74–125; RESP 16–22; TEMP 94.8–99.3; O2SAT 93–100
[2023-10-17] MEDS: MEROPENEM 1GM IVPB 100 ML IV SCH ×3 (00:13→15:43)
[2023-10-17] MEDS: VANCOMYCIN 1GM/200ML 200 ML IV SCH ×2 (00:13→14:40)
[2023-10-17] MEDS: FREE WATER GT SCH ×4 (00:14→17:43)
[2023-10-17] MEDS: MIDAZOLAM DRIP 50 mg/50mL 50 ML IV SCH ×4 (00:14→17:42)
[2023-10-17] MEDS: IPRATROPIUM BROM 0.5 MG/2.5ML INH SOL NEB SCH ×6 (02:16→22:05)
[2023-10-17] MEDS: ALBUTEROL SULF 2.5 MG/0.5ML(0.5%) NEB SOLN NEB SCH ×6 (02:16→22:05)
[2023-10-17 04:35] LABS: Basophils # (auto) 0 10 ^3/uL (0-0.2); Basophils % (auto) 0.6 % (0.0-2.0); Eosinophils # (auto) 0.2 10 ^3/uL (0-0.8); Eosinophils % (auto) 2.9 % (0.0-7.0); Hematocrit 30.5 % (36.0-46.0); Hemoglobin 10.1 g/dL (12.2-16.2); Lymphocytes # (auto) 2.1 10 ^3/uL (0.4-5.4); Lymphocytes % (auto) 27.8 % (10.0-50.0); Mean Corpuscular Hemoglobin 32.8 pg (28.0-32.0); Mean Corpuscular Hgb Conc. 33.2 g/dL (32.0-36.0); Mean Corpuscular Volume 98.7 fL (80.0-100.0); Monocytes # (auto) 1.2 10 ^3/uL (0-1.3); Monocytes % (auto) 15.6 % (0.0-12.0); Neutrophils % (auto) 53.1 % (37.0-80.0); Red Blood Cells 3.09 10^6/uL (4.0-5.20); Red Cell Distribution Width 15.8 % (11.8-14.3); White Blood Cell 7.6 10^3/uL (4.4-10.8)
[2023-10-17 04:47] LABS: Anion Gap 8 (5-15); Carbon Dioxide 22 mmol/L (20-30); Chloride 117 mmol/L (98-107); Potassium 3.4 mmol/L (3.5-5.1); Sodium 147 mmol/L (136-145)
[2023-10-17 04:48] LABS: Calcium 7.6 mg/dL (8.5-10.1)
[2023-10-17 04:53] LABS: BUN/Creatinine Ratio 11.1 (10.0-20.0); Blood Urea Nitrogen 7 mg/dL (9-23); Glucose 77 mg/dL (74-106)
[2023-10-17] MEDS: VALPROIC ACID 250 MG/5 ML ORAL SOLN GT SCH ×3 (06:28→21:51)
[2023-10-17] MEDS: GABAPENTIN 300 MG CAP PO SCH ×3 (06:28→21:51)
[2023-10-17 08:40] LABS: Base Excess -1.7 mmol/L (-2.0-2.0)
[2023-10-17] MEDS: PANTOPRAZOLE 40 MG/10 ML VIAL INJ IV SCH (09:23)
[2023-10-17] MEDS: lamoTRIgine 100 MG TAB PO SCH ×2 (09:23→21:51)
[2023-10-17] MEDS: levETIRAcetam 1000 mg/100ml 100 ML IV SCH ×2 (09:23→21:51)
[2023-10-17] MEDS: ENOXAPARIN SOD 40 MG/0.4 ML SYRINGE SC SCH (09:23)
[2023-10-17] MEDS: SODIUM CHLOR 0.9% PF (SALINE LOCK) 10ML VIAL/SYR IV SCH ×2 (09:24→21:52)
[2023-10-17] MEDS: fentaNYL Drip 2500mCg/250mlNS 250 ML IV SCH (09:26)
[2023-10-17] MEDS ORDERED: POTASSIUM CHL 20MEQ/100ML 100 ML IV ONE (09:45)
[2023-10-17] MEDS ORDERED: LACTULOSE 20Gm/30ML SOLN PO ONE (09:45)
[2023-10-17] MEDS ORDERED: MIDODRINE HCL 10 MG TAB PO ONE (13:00)
[2023-10-17] MEDS: MIDODRINE HCL 10 MG TAB PO SCH (17:42)
[2023-10-17] MEDS: NOREPINEPHRINE 8 MG/250ML KIT 250 ML IV SCH (23:30)
[2023-10-18] VITALS (108 sets, daily range): BP systolic 82–148; BP diastolic 49–98; PULSE 75–113; RESP 18–24; TEMP 97.8–98.9; O2SAT 92–100
[2023-10-18] MEDS: MEROPENEM 1GM IVPB 100 ML IV SCH ×3 (00:51→18:05)
[2023-10-18] MEDS: ALBUTEROL SULF 2.5 MG/0.5ML(0.5%) NEB SOLN NEB SCH ×6 (02:09→22:09)
[2023-10-18] MEDS: IPRATROPIUM BROM 0.5 MG/2.5ML INH SOL NEB SCH ×6 (02:09→22:09)
[2023-10-18] MEDS: fentaNYL Drip 2500mCg/250mlNS 250 ML IV SCH (02:46)
[2023-10-18 04:04] LABS: Hematocrit 31.7 % (36.0-46.0); Hemoglobin 10.2 g/dL (12.2-16.2); Mean Corpuscular Hemoglobin 32.6 pg (28.0-32.0); Mean Corpuscular Hgb Conc. 32.3 g/dL (32.0-36.0); Mean Corpuscular Volume 101.1 fL (80.0-100.0); Red Blood Cells 3.13 10^6/uL (4.0-5.20); Red Cell Distribution Width 16.8 % (11.8-14.3); White Blood Cell 7.7 10^3/uL (4.4-10.8)
[2023-10-18 04:14] LABS: Chloride 116 mmol/L (98-107); Potassium 3.6 mmol/L (3.5-5.1); Sodium 146 mmol/L (136-145)
[2023-10-18 04:15] LABS: Anion Gap 9 (5-15); Calcium 7.5 mg/dL (8.7-10.4); Carbon Dioxide 21 mmol/L (20-30)
[2023-10-18 04:20] LABS: Glucose 126 mg/dL (74-106)
[2023-10-18 04:31] LABS: BUN/Creatinine Ratio 8.8 (10.0-20.0); Blood Urea Nitrogen < 5 mg/dL (9-23)
[2023-10-18 04:32] LABS: Basophils % (manual) 0 (0.0-2.0); Blast Cells 0; Metamyelocytes % 0; Myelocytes % 0; Promyelocytes % 0; Reactive Lymphocytes 0
[2023-10-18] MEDS: VANCOMYCIN 1GM/200ML 200 ML IV SCH ×2 (05:03→21:28)
[2023-10-18] MEDS: VALPROIC ACID 250 MG/5 ML ORAL SOLN GT SCH ×3 (05:03→22:15)
[2023-10-18] MEDS: FREE WATER GT SCH ×5 (05:03→23:56)
[2023-10-18] MEDS: MIDODRINE HCL 10 MG TAB PO SCH ×3 (05:04→18:05)
[2023-10-18] MEDS: MIDAZOLAM DRIP 50 mg/50mL 50 ML IV SCH (05:04)
[2023-10-18] MEDS: GABAPENTIN 300 MG CAP PO SCH ×3 (05:04→22:15)
[2023-10-18] MEDS: NOREPINEPHRINE 8 MG/250ML KIT 250 ML IV SCH (05:05)
[2023-10-18 05:36] LABS: Band Neutrophils % (manual) 5; Eosinophils % (manual) 3 (0-7); Lymphocytes % (manual) 32 (10.0-50.0); Macrocytosis Slight; Monocytes % (manual) 18 (0-12)
[2023-10-18 05:37] LABS: Platelet Estimate Adequate
[2023-10-18] MEDS: Jevity 1.2 Cal/Fiber 1 Liter GT SCH (05:53)
[2023-10-18 06:07] LABS: Base Excess -3.2 mmol/L (-2.0-2.0)
[2023-10-18] MEDS: PANTOPRAZOLE 40 MG/10 ML VIAL INJ IV SCH (10:58)
[2023-10-18] MEDS: ENOXAPARIN SOD 40 MG/0.4 ML SYRINGE SC SCH (10:58)
[2023-10-18] MEDS: levETIRAcetam 1000 mg/100ml 100 ML IV SCH ×2 (10:58→22:17)
[2023-10-18] MEDS: lamoTRIgine 100 MG TAB PO SCH ×2 (10:59→22:15)
[2023-10-18] MEDS: SODIUM CHLOR 0.9% PF (SALINE LOCK) 10ML VIAL/SYR IV SCH ×2 (11:00→22:15)
[2023-10-18] MEDS ORDERED: FUROSEMIDE 20 MG/2 ML VIAL IV ONE (12:00)
[2023-10-19] VITALS (105 sets, daily range): BP systolic 103–153; BP diastolic 59–102; PULSE 71–112; RESP 19–24; TEMP 98.1–99.1; O2SAT 88–100
[2023-10-19] MEDS: MEROPENEM 1GM IVPB 100 ML IV SCH ×4 (00:27→23:17)
[2023-10-19] MEDS: ALBUTEROL SULF 2.5 MG/0.5ML(0.5%) NEB SOLN NEB SCH ×6 (02:16→22:09)
[2023-10-19] MEDS: IPRATROPIUM BROM 0.5 MG/2.5ML INH SOL NEB SCH ×6 (02:16→22:09)
[2023-10-19 02:54] LABS: Eosinophils # (auto) 0.3 10 ^3/uL (0-0.8); Nucleated Red Blood Cells % 0.1 %
[2023-10-19 03:01] LABS: Basophils # (auto) 0.1 10 ^3/uL (0-0.2); Basophils % (auto) 0.6 % (0.0-2.0); Eosinophils % (auto) 4.1 % (0.0-7.0); Hemoglobin 10.1 g/dL (12.2-16.2); Lymphocytes # (auto) 2.5 10 ^3/uL (0.4-5.4); Lymphocytes % (auto) 31.8 % (10.0-50.0); Mean Corpuscular Hemoglobin 34.2 pg (28.0-32.0); Mean Corpuscular Hgb Conc. 32.7 g/dL (32.0-36.0); Mean Corpuscular Volume 104.7 fL (80.0-100.0); Monocytes # (auto) 1.2 10 ^3/uL (0-1.3); Neutrophils # (auto) 3.8 10 ^3/uL (1.6-8.6); Neutrophils % (auto) 48.5 % (37.0-80.0); Red Blood Cells 2.96 10^6/uL (4.0-5.20); Red Cell Distribution Width 16.8 % (11.8-14.3); White Blood Cell 7.8 10^3/uL (4.4-10.8)
[2023-10-19 03:19] LABS: Alanine Aminotransferase 34 U/L (7-40); Albumin 2.6 g/dL (3.2-4.8); Alkaline Phosphatase 102 U/L (46-116); Anion Gap 9 (5-15); Aspartate Aminotransferase 75 U/L (13-40); Carbon Dioxide 23 mmol/L (20-30); Chloride 114 mmol/L (98-107); Potassium 4.2 mmol/L (3.5-5.1); Sodium 146 mmol/L (136-145)
[2023-10-19 03:20] LABS: Bilirubin, Total 0.3 mg/dL (0.2-1.0); Total Protein 5.9 g/dL (5.7-8.2)
[2023-10-19 03:23] LABS: BUN/Creatinine Ratio 6.8 (10.0-20.0); Blood Urea Nitrogen < 5 mg/dL (9-23)
[2023-10-19 03:25] LABS: Glucose 83 mg/dL (74-106)
[2023-10-19] MEDS: VALPROIC ACID 250 MG/5 ML ORAL SOLN GT SCH ×3 (06:25→21:40)
[2023-10-19] MEDS: MIDODRINE HCL 10 MG TAB PO SCH ×3 (06:25→18:36)
[2023-10-19] MEDS: FREE WATER GT SCH ×4 (06:25→23:08)
[2023-10-19] MEDS: GABAPENTIN 300 MG CAP PO SCH ×3 (06:25→21:40)
[2023-10-19 07:26] LABS: Base Excess 2.1 mmol/L (-2.0-2.0)
[2023-10-19] MEDS: fentaNYL Drip 2500mCg/250mlNS 250 ML IV SCH (09:40)
[2023-10-19] MEDS: ENOXAPARIN SOD 40 MG/0.4 ML SYRINGE SC SCH (09:40)
[2023-10-19] MEDS: lamoTRIgine 100 MG TAB PO SCH ×2 (09:40→21:41)
[2023-10-19] MEDS: PANTOPRAZOLE 40 MG/10 ML VIAL INJ IV SCH (09:40)
[2023-10-19] MEDS: levETIRAcetam 1000 mg/100ml 100 ML IV SCH ×2 (09:41→21:40)
[2023-10-19] MEDS: SODIUM CHLOR 0.9% PF (SALINE LOCK) 10ML VIAL/SYR IV SCH ×2 (09:41→21:58)
[2023-10-19] MEDS ORDERED: FUROSEMIDE 20 MG/2 ML VIAL IV ONE (11:30)
[2023-10-19] MEDS ORDERED: LACTULOSE 20Gm/30ML SOLN PO ONE (11:30)
[2023-10-19] MEDS: LACTULOSE 20Gm/30ML SOLN PO SCH ×2 (18:36→23:17)
[2023-10-19] MEDS: ARTIFICIAL TEAR OPTH(EYE) OINT 3.5GM EACHEYE SCH (22:00)
[2023-10-19] MEDS: MIDAZOLAM DRIP 50 mg/50mL 50 ML IV SCH (22:30)
[2023-10-19] MEDS: NOREPINEPHRINE 8 MG/250ML KIT 250 ML IV SCH (23:30)
[2023-10-20] VITALS (90 sets, daily range): BP systolic 105–147; BP diastolic 73–96; PULSE 90–149; RESP 12–29; TEMP 98.2–98.6; O2SAT 94–100
[2023-10-20] MEDS: ALBUTEROL SULF 2.5 MG/0.5ML(0.5%) NEB SOLN NEB SCH ×6 (02:20→22:34)
[2023-10-20] MEDS: IPRATROPIUM BROM 0.5 MG/2.5ML INH SOL NEB SCH ×6 (02:20→22:34)
[2023-10-20] MEDS: VANCOMYCIN 1GM/200ML 200 ML IV SCH ×2 (03:45→18:55)
[2023-10-20 04:17] LABS: Anion Gap 10 (5-15); Basophils # (auto) 0.1 10 ^3/uL (0-0.2); Carbon Dioxide 23 mmol/L (20-30); Chloride 113 mmol/L (98-107); Eosinophils # (auto) 0.2 10 ^3/uL (0-0.8); Hematocrit 29.5 % (36.0-46.0); Hemoglobin 10.4 g/dL (12.2-16.2); Lymphocytes # (auto) 1.6 10 ^3/uL (0.4-5.4); Lymphocytes % (auto) 24.1 % (10.0-50.0); Mean Corpuscular Hemoglobin 37.7 pg (28.0-32.0); Mean Corpuscular Hgb Conc. 35.2 g/dL (32.0-36.0); Mean Corpuscular Volume 106.9 fL (80.0-100.0); Monocytes # (auto) 0.8 10 ^3/uL (0-1.3); Monocytes % (auto) 13.1 % (0.0-12.0); Neutrophils # (auto) 3.8 10 ^3/uL (1.6-8.6); Neutrophils % (auto) 58.8 % (37.0-80.0); Nucleated Red Blood Cells % 0.1 %; Potassium 4.7 mmol/L (3.5-5.1); Red Blood Cells 2.76 10^6/uL (4.0-5.20); Sodium 146 mmol/L (136-145); White Blood Cell 6.5 10^3/uL (4.4-10.8)
[2023-10-20 04:18] LABS: Calcium 8.5 mg/dL (8.7-10.4)
[2023-10-20 04:23] LABS: BUN/Creatinine Ratio 6.4 (10.0-20.0); Blood Urea Nitrogen 5 mg/dL (9-23); Glucose 97 mg/dL (74-106)
[2023-10-20] MEDS: FREE WATER GT SCH ×3 (05:30→18:32)
[2023-10-20] MEDS: MIDODRINE HCL 10 MG TAB PO SCH ×3 (05:30→18:32)
[2023-10-20] MEDS: GABAPENTIN 300 MG CAP PO SCH ×3 (05:30→22:58)
[2023-10-20] MEDS: VALPROIC ACID 250 MG/5 ML ORAL SOLN GT SCH ×3 (05:30→22:57)
[2023-10-20] MEDS: LACTULOSE 20Gm/30ML SOLN PO SCH ×3 (05:30→18:32)
[2023-10-20] MEDS: MEROPENEM 1GM IVPB 100 ML IV SCH (09:06)
[2023-10-20] MEDS: levETIRAcetam 1000 mg/100ml 100 ML IV SCH ×2 (09:44→22:57)
[2023-10-20] MEDS: ENOXAPARIN SOD 40 MG/0.4 ML SYRINGE SC SCH (09:44)
[2023-10-20] MEDS: PANTOPRAZOLE 40 MG/10 ML VIAL INJ IV SCH (09:44)
[2023-10-20] MEDS: lamoTRIgine 100 MG TAB PO SCH ×2 (09:45→22:58)
[2023-10-20] MEDS: fentaNYL Drip 2500mCg/250mlNS 250 ML IV SCH (09:45)
[2023-10-20] MEDS: SODIUM CHLOR 0.9% PF (SALINE LOCK) 10ML VIAL/SYR IV SCH ×2 (09:46→22:57)
[2023-10-20] MEDS ORDERED: FUROSEMIDE 20 MG/2 ML VIAL IV ONE (11:30)
[2023-10-20] MEDS: levoFLOXacin 500MG 100 ML IV SCH (14:25)
[2023-10-20] MEDS: ARTIFICIAL TEAR OPTH(EYE) OINT 3.5GM EACHEYE SCH (22:00)
[2023-10-20] MEDS: MIDAZOLAM DRIP 50 mg/50mL 50 ML IV SCH (22:30)
[2023-10-20] MEDS: NOREPINEPHRINE 8 MG/250ML KIT 250 ML IV SCH (23:13)
[2023-10-21] VITALS (108 sets, daily range): BP systolic 106–137; BP diastolic 60–97; PULSE 85–136; RESP 9–29; TEMP 98.8–99.1; O2SAT 83–100
[2023-10-21] MEDS: FREE WATER GT SCH ×3 (00:09→12:00)
[2023-10-21] MEDS: ALBUTEROL SULF 2.5 MG/0.5ML(0.5%) NEB SOLN NEB SCH ×6 (02:35→22:04)
[2023-10-21] MEDS: IPRATROPIUM BROM 0.5 MG/2.5ML INH SOL NEB SCH ×6 (02:36→22:04)
[2023-10-21 03:57] LABS: Basophils # (auto) 0 10 ^3/uL (0-0.2); Basophils % (auto) 0.3 % (0.0-2.0); Eosinophils # (auto) 0 10 ^3/uL (0-0.8); Monocytes # (auto) 0.7 10 ^3/uL (0-1.3); Nucleated Red Blood Cells % 0.1 %
[2023-10-21 04:02] LABS: Chloride 111 mmol/L (98-107); Eosinophils % (auto) 0.6 % (0.0-7.0); Hematocrit 28.2 % (36.0-46.0); Hemoglobin 9.8 g/dL (12.2-16.2); Lymphocytes % (auto) 23.8 % (10.0-50.0); Mean Corpuscular Hemoglobin 36.5 pg (28.0-32.0); Mean Corpuscular Hgb Conc. 34.7 g/dL (32.0-36.0); Mean Corpuscular Volume 105.2 fL (80.0-100.0); Monocytes % (auto) 8.2 % (0.0-12.0); Neutrophils # (auto) 5.6 10 ^3/uL (1.6-8.6); Neutrophils % (auto) 67.1 % (37.0-80.0); Potassium 3.6 mmol/L (3.5-5.1); Red Blood Cells 2.68 10^6/uL (4.0-5.20); Red Cell Distribution Width 16.3 % (11.8-14.3); Sodium 144 mmol/L (136-145); White Blood Cell 8.4 10^3/uL (4.4-10.8)
[2023-10-21 04:03] LABS: Anion Gap 11 (5-15); Calcium 8.6 mg/dL (8.7-10.4); Carbon Dioxide 22 mmol/L (20-30)
[2023-10-21 04:08] LABS: Glucose 102 mg/dL (74-106)
[2023-10-21 04:24] LABS: BUN/Creatinine Ratio 6.5 (10.0-20.0); Blood Urea Nitrogen < 5 mg/dL (9-23)
[2023-10-21] MEDS: GABAPENTIN 300 MG CAP PO SCH ×3 (05:53→21:48)
[2023-10-21] MEDS: MIDODRINE HCL 10 MG TAB PO SCH ×3 (05:53→18:00)
[2023-10-21] MEDS: LACTULOSE 20Gm/30ML SOLN PO SCH ×3 (05:53→12:00)
[2023-10-21] MEDS: VALPROIC ACID 250 MG/5 ML ORAL SOLN GT SCH ×3 (05:53→21:47)
[2023-10-21] MEDS: VANCOMYCIN 1GM/200ML 200 ML IV SCH ×2 (09:26→23:46)
[2023-10-21] MEDS: PANTOPRAZOLE 40 MG/10 ML VIAL INJ IV SCH (09:26)
[2023-10-21] MEDS: ENOXAPARIN SOD 40 MG/0.4 ML SYRINGE SC SCH (09:27)
[2023-10-21] MEDS: levoFLOXacin 500MG 100 ML IV SCH (09:27)
[2023-10-21] MEDS: levETIRAcetam 1000 mg/100ml 100 ML IV SCH ×2 (09:27→21:47)
[2023-10-21 10:00] LABS: Base Excess -0.7 mmol/L (-2.0-2.0)
[2023-10-21] MEDS: SODIUM CHLOR 0.9% PF (SALINE LOCK) 10ML VIAL/SYR IV SCH ×2 (10:00→21:47)
[2023-10-21] MEDS: lamoTRIgine 100 MG TAB PO SCH ×2 (10:02→21:48)
[2023-10-21] MEDS: ARTIFICIAL TEAR OPTH(EYE) OINT 3.5GM EACHEYE SCH (21:47)
[2023-10-22] VITALS (108 sets, daily range): BP systolic 109–153; BP diastolic 66–98; PULSE 87–124; RESP 10–48; TEMP 98.2–99.8; O2SAT 86–99
[2023-10-22] MEDS: ALBUTEROL SULF 2.5 MG/0.5ML(0.5%) NEB SOLN NEB SCH ×6 (02:11→22:28)
[2023-10-22] MEDS: IPRATROPIUM BROM 0.5 MG/2.5ML INH SOL NEB SCH ×6 (02:11→22:28)
[2023-10-22 04:13] LABS: Basophils # (auto) 0 10 ^3/uL (0-0.2); Eosinophils # (auto) 0 10 ^3/uL (0-0.8); Eosinophils % (auto) 0.6 % (0.0-7.0); Hemoglobin 9.2 g/dL (12.2-16.2); Red Blood Cells 2.53 10^6/uL (4.0-5.20)
[2023-10-22 04:15] LABS: Basophils % (auto) 0.2 % (0.0-2.0); Hematocrit 26.7 % (36.0-46.0); Lymphocytes # (auto) 1.9 10 ^3/uL (0.4-5.4); Lymphocytes % (auto) 27.4 % (10.0-50.0); Mean Corpuscular Hemoglobin 36.3 pg (28.0-32.0); Mean Corpuscular Hgb Conc. 34.5 g/dL (32.0-36.0); Mean Corpuscular Volume 105.3 fL (80.0-100.0); Monocytes # (auto) 0.7 10 ^3/uL (0-1.3); Monocytes % (auto) 9.7 % (0.0-12.0); Neutrophils # (auto) 4.3 10 ^3/uL (1.6-8.6); Neutrophils % (auto) 62.1 % (37.0-80.0); Red Cell Distribution Width 15.9 % (11.8-14.3); White Blood Cell 6.9 10^3/uL (4.4-10.8)
[2023-10-22 04:37] LABS: Alanine Aminotransferase 20 U/L (7-40); Albumin 2.9 g/dL (3.2-4.8); Alkaline Phosphatase 94 U/L (46-116); Anion Gap 9 (5-15); Aspartate Aminotransferase 35 U/L (13-40); Bilirubin, Total 0.3 mg/dL (0.2-1.0); Calcium 8.7 mg/dL (8.7-10.4); Carbon Dioxide 25 mmol/L (20-30); Chloride 109 mmol/L (98-107); Glucose 69 mg/dL (74-106); Potassium 3.3 mmol/L (3.5-5.1); Sodium 143 mmol/L (136-145); Total Protein 6.6 g/dL (5.7-8.2)
[2023-10-22 05:11] LABS: BUN/Creatinine Ratio 7.6 (10.0-20.0); Blood Urea Nitrogen < 5 mg/dL (9-23)
[2023-10-22] MEDS: GABAPENTIN 300 MG CAP PO SCH ×3 (05:38→22:39)
[2023-10-22] MEDS: VALPROIC ACID 250 MG/5 ML ORAL SOLN GT SCH (05:38)
[2023-10-22] MEDS: MIDODRINE HCL 10 MG TAB PO SCH ×3 (05:38→12:34)
[2023-10-22] MEDS: SODIUM CHLOR 0.9% PF (SALINE LOCK) 10ML VIAL/SYR IV SCH ×2 (07:25→22:38)
[2023-10-22] MEDS: PANTOPRAZOLE 40 MG/10 ML VIAL INJ IV SCH (09:26)
[2023-10-22] MEDS: levETIRAcetam 1000 mg/100ml 100 ML IV SCH ×2 (09:26→22:37)
[2023-10-22] MEDS: levoFLOXacin 500MG 100 ML IV SCH (09:26)
[2023-10-22] MEDS: lamoTRIgine 100 MG TAB PO SCH ×2 (09:26→22:39)
[2023-10-22] MEDS: ENOXAPARIN SOD 40 MG/0.4 ML SYRINGE SC SCH (09:27)
[2023-10-22] MEDS ORDERED: SODIUM CHLORIDE 0.9% 1,000 ML IV SCH (11:30)
[2023-10-22] MEDS ORDERED: POTASSIUM CHL 20MEQ/100ML 100 ML IV ONE (11:30)
[2023-10-22] MEDS: VALPROATE INJ 500 MG in SODIUM CHL 0.9% 100 ML IV SCH ×2 (13:51→22:00)
[2023-10-22] MEDS ORDERED: FUROSEMIDE 20 MG/2 ML VIAL IV ONE (14:45)
[2023-10-22] MEDS: VANCOMYCIN 1GM/200ML 200 ML IV SCH (15:02)
[2023-10-22] MEDS: methylPREDNISolone SOD SUCC 40 MG/ML VL IV SCH ×2 (15:28→22:38)
[2023-10-22] MEDS: ARTIFICIAL TEAR OPTH(EYE) OINT 3.5GM EACHEYE SCH (22:00)
[2023-10-22] MEDS ORDERED: methylPREDNISolone SOD SUCC 40 MG/ML VL IV SCH (22:00)
[2023-10-22] MEDS: MORPHINE SULFATE INJ 2 MG/ml SYRG IV PRN (23:34)
[2023-10-23] VITALS (50 sets, daily range): BP systolic 102–146; BP diastolic 61–83; PULSE 83–129; RESP 15–39; TEMP 98–99.4; O2SAT 90–100
[2023-10-23] MEDS: ALBUTEROL SULF 2.5 MG/0.5ML(0.5%) NEB SOLN NEB SCH ×6 (02:33→22:04)
[2023-10-23] MEDS: IPRATROPIUM BROM 0.5 MG/2.5ML INH SOL NEB SCH ×6 (02:33→22:04)
[2023-10-23] MEDS: MORPHINE SULFATE INJ 2 MG/ml SYRG IV PRN ×3 (03:48→17:54)
[2023-10-23] MEDS: MIDODRINE HCL 10 MG TAB PO SCH ×3 (07:01→17:53)
[2023-10-23] MEDS: GABAPENTIN 300 MG CAP PO SCH ×3 (07:01→22:04)
[2023-10-23] MEDS: VALPROATE INJ 500 MG in SODIUM CHL 0.9% 100 ML IV SCH ×3 (07:01→22:04)
[2023-10-23] MEDS: VANCOMYCIN 1GM/200ML 200 ML IV SCH ×2 (07:02→22:03)
[2023-10-23] MEDS: levoFLOXacin 500MG 100 ML IV SCH (10:02)
[2023-10-23] MEDS: levETIRAcetam 1000 mg/100ml 100 ML IV SCH ×2 (10:03→22:05)
[2023-10-23] MEDS: lamoTRIgine 100 MG TAB PO SCH ×2 (10:04→22:04)
[2023-10-23] MEDS: methylPREDNISolone SOD SUCC 40 MG/ML VL IV SCH ×2 (10:04→22:04)
[2023-10-23] MEDS: PANTOPRAZOLE 40 MG/10 ML VIAL INJ IV SCH (10:04)
[2023-10-23] MEDS: SODIUM CHLOR 0.9% PF (SALINE LOCK) 10ML VIAL/SYR IV SCH ×2 (10:04→22:04)
[2023-10-23] MEDS: ENOXAPARIN SOD 40 MG/0.4 ML SYRINGE SC SCH (10:04)
[2023-10-23] MEDS: ARTIFICIAL TEAR OPTH(EYE) OINT 3.5GM EACHEYE SCH (22:00)
[2023-10-24] VITALS (35 sets, daily range): BP systolic 95–139; BP diastolic 55–93; PULSE 55–114; RESP 14–32; TEMP 98–99.1; O2SAT 91–100
[2023-10-24] MEDS: IPRATROPIUM BROM 0.5 MG/2.5ML INH SOL NEB SCH ×6 (02:08→22:22)
[2023-10-24] MEDS: ALBUTEROL SULF 2.5 MG/0.5ML(0.5%) NEB SOLN NEB SCH ×6 (02:08→22:22)
[2023-10-24] MEDS: VALPROATE INJ 500 MG in SODIUM CHL 0.9% 100 ML IV SCH ×2 (06:00→14:05)
[2023-10-24 06:19] LABS: Chloride 113 mmol/L (98-107); Potassium 2.9 mmol/L (3.5-5.1); Sodium 147 mmol/L (136-145)
[2023-10-24 06:20] LABS: Anion Gap 8 (5-15); Calcium 8.4 mg/dL (8.5-10.1); Carbon Dioxide 26 mmol/L (20-30)
[2023-10-24 06:25] LABS: BUN/Creatinine Ratio 14.5 (10.0-20.0); Blood Urea Nitrogen 11 mg/dL (9-23); Glucose 104 mg/dL (74-106)
[2023-10-24] MEDS: GABAPENTIN 300 MG CAP PO SCH ×3 (06:57→23:23)
[2023-10-24] MEDS: MIDODRINE HCL 10 MG TAB PO SCH ×2 (06:58→12:22)
[2023-10-24] MEDS: MORPHINE SULFATE INJ 2 MG/ml SYRG IV PRN ×2 (07:37→14:00)
[2023-10-24] MEDS ORDERED: POTASSIUM EFFERVESENT TAB 25 MEQ PO ONE (08:30)
[2023-10-24] MEDS: SODIUM CHLOR 0.9% PF (SALINE LOCK) 10ML VIAL/SYR IV SCH ×2 (09:18→23:23)
[2023-10-24] MEDS: methylPREDNISolone SOD SUCC 40 MG/ML VL IV SCH (09:30)
[2023-10-24] MEDS: levoFLOXacin 500MG 100 ML IV SCH (09:34)
[2023-10-24] MEDS: ENOXAPARIN SOD 40 MG/0.4 ML SYRINGE SC SCH (09:34)
[2023-10-24] MEDS: levETIRAcetam 1000 mg/100ml 100 ML IV SCH (09:34)
[2023-10-24] MEDS: lamoTRIgine 100 MG TAB PO SCH ×2 (09:34→23:22)
[2023-10-24] MEDS ORDERED: PANTOPRAZOLE 40 MG TAB PO ONE (10:15)
[2023-10-24] MEDS ORDERED: methylPREDNISolone SOD SUCC 40 MG/ML VL IV SCH (10:45)
[2023-10-24] MEDS: VANCOMYCIN 1GM/200ML 200 ML IV SCH (12:19)
[2023-10-24] MEDS: ACETYLCYSTEINE 20%(200MG/ML) SOL 4ML NEB SCH ×2 (15:24→22:22)
[2023-10-24] MEDS: ARTIFICIAL TEAR OPTH(EYE) OINT 3.5GM EACHEYE SCH (22:00)
[2023-10-24] MEDS ORDERED: levETIRAcetam 500 MG TAB PO SCH (22:00)
[2023-10-24] MEDS: levETIRAcetam 500 MG TAB PO SCH (23:23)
[2023-10-25] VITALS (27 sets, daily range): BP systolic 108–134; BP diastolic 66–88; PULSE 101–125; RESP 17–34; TEMP 97.3–98.9; O2SAT 91–100
[2023-10-25] MEDS: VANCOMYCIN 1GM/200ML 200 ML IV SCH ×2 (02:00→15:39)
[2023-10-25] MEDS: ALBUTEROL SULF 2.5 MG/0.5ML(0.5%) NEB SOLN NEB SCH ×6 (02:18→21:30)
[2023-10-25] MEDS: IPRATROPIUM BROM 0.5 MG/2.5ML INH SOL NEB SCH ×6 (02:18→21:30)
[2023-10-25] MEDS: GABAPENTIN 300 MG CAP PO SCH ×3 (06:00→22:20)
[2023-10-25 06:15] LABS: Basophils # (auto) 0.1 10 ^3/uL (0-0.2); Basophils % (auto) 0.6 % (0.0-2.0); Eosinophils # (auto) 0 10 ^3/uL (0-0.8); Eosinophils % (auto) 0.5 % (0.0-7.0); Hemoglobin 8.9 g/dL (12.2-16.2); Lymphocytes # (auto) 3.5 10 ^3/uL (0.4-5.4); Lymphocytes % (auto) 38.2 % (10.0-50.0); Mean Corpuscular Hemoglobin 33.1 pg (28.0-32.0); Mean Corpuscular Hgb Conc. 32.9 g/dL (32.0-36.0); Mean Corpuscular Volume 100.7 fL (80.0-100.0); Neutrophils # (auto) 4.6 10 ^3/uL (1.6-8.6); Neutrophils % (auto) 49.7 % (37.0-80.0); Nucleated Red Blood Cells % 0.1 %; Red Blood Cells 2.68 10^6/uL (4.0-5.20); White Blood Cell 9.3 10^3/uL (4.4-10.8)
[2023-10-25 06:32] LABS: Anion Gap 9 (5-15); Calcium 8.3 mg/dL (8.5-10.1); Carbon Dioxide 25 mmol/L (20-30); Chloride 112 mmol/L (98-107); Potassium 2.9 mmol/L (3.5-5.1); Sodium 146 mmol/L (136-145)
[2023-10-25 06:37] LABS: Glucose 81 mg/dL (74-106)
[2023-10-25 06:38] LABS: BUN/Creatinine Ratio 13.2 (10.0-20.0); Blood Urea Nitrogen 9 mg/dL (9-23)
[2023-10-25] MEDS: ACETYLCYSTEINE 20%(200MG/ML) SOL 4ML NEB SCH (06:45)
[2023-10-25] MEDS: PANTOPRAZOLE 40 MG TAB PO SCH (08:45)
[2023-10-25] MEDS: ENOXAPARIN SOD 40 MG/0.4 ML SYRINGE SC SCH (08:45)
[2023-10-25] MEDS: levETIRAcetam 500 MG TAB PO SCH ×3 (08:45→22:00)
[2023-10-25] MEDS: lamoTRIgine 100 MG TAB PO SCH ×2 (08:45→22:20)
[2023-10-25] MEDS: levoFLOXacin 500MG 100 ML IV SCH (08:46)
[2023-10-25] MEDS: SODIUM CHLOR 0.9% PF (SALINE LOCK) 10ML VIAL/SYR IV SCH ×2 (08:46→22:19)
[2023-10-25] MEDS: ZONISAMIDE PO SCH (08:46)
[2023-10-25] MEDS ORDERED: POTASSIUM EFFERVESENT TAB 25 MEQ PO ONE (10:30)
[2023-10-25] MEDS ORDERED: POTASSIUM CHL 20 Meq TABLET PO ONE (10:31)
[2023-10-25] MEDS: MORPHINE SULFATE INJ 2 MG/ml SYRG IV PRN ×2 (14:27→22:22)
[2023-10-25] MEDS: ARTIFICIAL TEAR OPTH(EYE) OINT 3.5GM EACHEYE SCH (22:21)
[2023-10-26] VITALS (14 sets, daily range): BP systolic 123–149; BP diastolic 84–96; PULSE 104–118; RESP 16–22; TEMP 98.3–99.1; O2SAT 90–100
[2023-10-26] MEDS: IPRATROPIUM BROM 0.5 MG/2.5ML INH SOL NEB SCH ×4 (02:05→14:45)
[2023-10-26] MEDS: ALBUTEROL SULF 2.5 MG/0.5ML(0.5%) NEB SOLN NEB SCH ×4 (02:05→14:45)
[2023-10-26] MEDS: GABAPENTIN 300 MG CAP PO SCH ×2 (06:25→13:58)
[2023-10-26] MEDS: VANCOMYCIN 1GM/200ML 200 ML IV SCH (06:25)
[2023-10-26 06:51] LABS: Basophils # (auto) 0 10 ^3/uL (0-0.2); Basophils % (auto) 0.3 % (0.0-2.0); Eosinophils # (auto) 0.1 10 ^3/uL (0-0.8); Eosinophils % (auto) 1.7 % (0.0-7.0); Hematocrit 27.5 % (36.0-46.0); Lymphocytes # (auto) 3.2 10 ^3/uL (0.4-5.4); Lymphocytes % (auto) 43.2 % (10.0-50.0); Mean Corpuscular Hemoglobin 33.2 pg (28.0-32.0); Mean Corpuscular Hgb Conc. 32.8 g/dL (32.0-36.0); Mean Corpuscular Volume 101.4 fL (80.0-100.0); Monocytes # (auto) 0.6 10 ^3/uL (0-1.3); Monocytes % (auto) 8.4 % (0.0-12.0); Neutrophils # (auto) 3.5 10 ^3/uL (1.6-8.6); Neutrophils % (auto) 46.4 % (37.0-80.0); Nucleated Red Blood Cells % 0.1 %; Red Blood Cells 2.71 10^6/uL (4.0-5.20); Red Cell Distribution Width 16.8 % (11.8-14.3); White Blood Cell 7.5 10^3/uL (4.4-10.8)
[2023-10-26 07:04] LABS: Chloride 113 mmol/L (98-107); Potassium 3.7 mmol/L (3.5-5.1); Sodium 144 mmol/L (136-145)
[2023-10-26 07:05] LABS: Anion Gap 8 (5-15); Carbon Dioxide 23 mmol/L (20-30)
[2023-10-26 07:10] LABS: Blood Urea Nitrogen 9 mg/dL (9-23); Glucose 70 mg/dL (74-106)
[2023-10-26 07:11] LABS: Magnesium 1.8 mg/dL (1.6-2.6)
[2023-10-26] MEDS: MORPHINE SULFATE INJ 2 MG/ml SYRG IV PRN ×2 (08:26→13:58)
[2023-10-26] MEDS: levETIRAcetam 500 MG TAB PO SCH (09:52)
[2023-10-26] MEDS: lamoTRIgine 100 MG TAB PO SCH (09:52)
[2023-10-26] MEDS: ENOXAPARIN SOD 40 MG/0.4 ML SYRINGE SC SCH (09:52)
[2023-10-26] MEDS: PANTOPRAZOLE 40 MG TAB PO SCH (09:52)
[2023-10-26] MEDS: levoFLOXacin 500MG 100 ML IV SCH (09:53)
[2023-10-26] MEDS: SODIUM CHLOR 0.9% PF (SALINE LOCK) 10ML VIAL/SYR IV SCH (09:54)
[2023-10-26] MEDS: ZONISAMIDE PO SCH (09:55)
[2023-10-26] MEDS ORDERED: LEVO500T91 PO (11:54)
[2023-10-26] MEDS ORDERED: VANCOMYCIN 1GM/200ML 200 ML IV SCH (18:00)
== END 2023-10-26 19:10 | disposition home or self-care (01) | DRG 870 ==
LOC: EDBD 11:51 → ER 11:51 → TELE 18:24 → ICU WEST 10-11 05:52 → DOU IN ICU 10-22 17:39 → TELE-EAST 10-25 06:09 → EAST 10-25 07:08
PROVIDERS: ADMIT Internal Medicine; ATTEND Internal Medicine
PROC: 5A1955Z Respiratory Ventilation, Greater than 96 Consecutive Hours (ICD-10-PCS; principal; 2023-10-10)
PROC: 0BH17EZ Insertion of Endotracheal Airway into Trachea, Via Natural or Artificial Opening (ICD-10-PCS; 2023-10-10)
PROC: 02HV33Z Insertion of Infusion Device into Superior Vena Cava, Percutaneous Approach (ICD-10-PCS; 2023-10-10)
PROC: B548ZZA Ultrasonography of Superior Vena Cava, Guidance (ICD-10-PCS; 2023-10-10)
PROC: XW033E5 Introduction of Remdesivir Anti-infective into Peripheral Vein, Percutaneous Approach, New Technology Group 5 (ICD-10-PCS; 2023-10-11)
PROC: 02HV33Z Insertion of Infusion Device into Superior Vena Cava, Percutaneous Approach (ICD-10-PCS; 2023-10-14)
PROC: B548ZZA Ultrasonography of Superior Vena Cava, Guidance (ICD-10-PCS; 2023-10-14)
DX: A41.89 Other specified sepsis (principal); J12.82 Pneumonia due to coronavirus disease 2019; J96.01 Acute respiratory failure with hypoxia; U07.1 COVID-19; N17.0 Acute kidney failure with tubular necrosis; R65.21 Severe sepsis with septic shock; G93.41 Metabolic encephalopathy; J90 Pleural effusion, not elsewhere classified; N12 Tubulo-interstitial nephritis, not specified as acute or chronic; N30.00 Acute cystitis without hematuria; J98.11 Atelectasis; E87.0 Hyperosmolality and hypernatremia; E87.20 Acidosis, unspecified; E87.29 Other acidosis; G91.9 Hydrocephalus, unspecified; G40.201 Localization-related (focal) (partial) symptomatic epilepsy and epileptic syndromes with complex partial seizures, not intractable, with status epilepticus; G40.401 Other generalized epilepsy and epileptic syndromes, not intractable, with status epilepticus; N18.31 Chronic kidney disease, stage 3a; B96.20 Unspecified Escherichia coli [E. coli] as the cause of diseases classified elsewhere; D69.59 Other secondary thrombocytopenia; F09 Unspecified mental disorder due to known physiological condition; S80.822A Blister (nonthermal), left lower leg, initial encounter; E87.6 Hypokalemia; X58.XXXA Exposure to other specified factors, initial encounter; B95.8 Unspecified staphylococcus as the cause of diseases classified elsewhere; J45.909 Unspecified asthma, uncomplicated; Z98.2 Presence of cerebrospinal fluid drainage device; Z79.899 Other long term (current) drug therapy; Z74.01 Bed confinement status; Z87.820 Personal history of traumatic brain injury; Y93.89 Activity, other specified; Y92.89 Other specified places as the place of occurrence of the external cause; Y99.8 Other external cause status; Z93.0 Tracheostomy status; Z23 Encounter for immunization
CPT/HCPCS: 36415; 36569; 36600; 70450; 71045; 71275; 74018; 80048; 80053; 80164; 80202; 80307; 81001; 81025; 82565; 82805; 83036; 83605; 83735; 83880; 84484; 85007; 85025; 85027; 85379; 85610; 85652; 85730; 86141; 87040; 87070; 87077; 87081; 87086; 87186; 87205; 87426; 87804; 92507; 92610; 93005; 93306; 93970; 94002; 94003; 94640; 95819; 96365; 96367; 97163; 99291; C9113; G0378; J1100; J1956; J2185; J2250; J3480

== ENCOUNTER 2024-04-24 10:32 | Day surgery (SDC) | payer OTHER, MEDICAID ==
[2024-04-20 12:22] LABS: Basophils # (auto) 0 10 ^3/uL (0-0.2); Basophils % (auto) 0.2 % (0.0-2.0); Eosinophils # (auto) 0.1 10 ^3/uL (0-0.8); Eosinophils % (auto) 0.7 % (0.0-7.0); Hematocrit 36.1 % (36.0-46.0); Lymphocytes # (auto) 2.8 10 ^3/uL (0.4-5.4); Lymphocytes % (auto) 31.1 % (10.0-50.0); Mean Corpuscular Hemoglobin 32.1 pg (28.0-32.0); Mean Corpuscular Hgb Conc. 33.3 g/dL (32.0-36.0); Mean Corpuscular Volume 96.3 fL (80.0-100.0); Monocytes % (auto) 11.1 % (0.0-12.0); Neutrophils % (auto) 56.9 % (37.0-80.0); Red Blood Cells 3.75 10^6/uL (4.0-5.20); Red Cell Distribution Width 15.2 % (11.8-14.3); White Blood Cell 8.9 10^3/uL (4.4-10.8)
[2024-04-20 12:40] LABS: Albumin 3.5 g/dL (3.2-4.8); Alkaline Phosphatase 61 U/L (46-116); Anion Gap 6 (5-15); Aspartate Aminotransferase < 8 U/L (13-40); BUN/Creatinine Ratio 16.7 (10.0-20.0); Blood Urea Nitrogen 15 mg/dL (9-23); Calcium 9.2 mg/dL (8.7-10.4); Carbon Dioxide 25 mmol/L (20-30); Chloride 111 mmol/L (98-107); Glucose 101 mg/dL (74-106); Potassium 3.3 mmol/L (3.5-5.1); Sodium 142 mmol/L (136-145)
[2024-04-20 12:41] LABS: Bilirubin, Total < 0.2 mg/dL (0.2-1.0); Total Protein 7.1 g/dL (5.7-8.2)
[2024-04-20 12:43] LABS: Alanine Aminotransferase < 9 U/L (7-40); INR 1.03 (0.9-1.15); Partial Thromboplastin Time 27.5 SEC (24.5-34.5); Prothrombin Time 10.9 sec (9.3-11.8)
[~2024-04-24] VITALS: Ht 177.8 cm; Wt 77.1 kg
[~2024-04-24 10:32] MED LIST changes: +ACET-1080 PO; -BACL10TA PO; -BACL20TA PO; +DOCU-94 PO; -DONETAB6 PO; +FLUT110A8 IN; -GABA-1308 PO; -GUAI600T23 PO; -HYDR-2549 PO; -LAMO150T2 PO; +LINA145C OR; -LUBI24CA6 PO; +MID10T PO; -MIRT1TAB39 PO; +NYST1OIN25 EX; +PANT40TA2 PO; +POLY335015 PO; -PSEU120T18 PO; -QUET1TAB11 PO; -[UNRECOGNIZED DRUG - CODE] PO
[2024-04-24] MEDS ORDERED: PROPOFOL 10 MG/ML 20 ML IV ONE (14:04)
[2024-04-24] MEDS ORDERED: fentaNYL CITRATE 100 MCG/2 ML VL ONE (14:04)
[2024-04-24] MEDS ORDERED: ePHEDrine SULFATE 50 MG/ML AMP ONE (14:16)
[2024-04-24] MEDS ORDERED: PHENYLEPHRINE HCL 10 MG/ML VL ONE (14:28)
[2024-04-24 14:47] VITALS: PULSE 89; RESP 22; TEMP 97; O2SAT 100
[2024-04-24] MEDS ORDERED: ONDANSETRON HCL 4 MG/2 ML VIAL IV ONE (15:00)
[2024-04-24 16:15] VITALS: BP 94/60; PULSE 84; RESP 18; O2SAT 95
== END 2024-04-24 16:30 | disposition home or self-care (01) ==
LOC: SUR 10:32
PROVIDERS: ATTEND Urology
DX: N20.0 Calculus of kidney (principal); I95.9 Hypotension, unspecified; G40.909 Epilepsy, unspecified, not intractable, without status epilepticus; Z87.820 Personal history of traumatic brain injury; Z98.890 Other specified postprocedural states; Z87.01 Personal history of pneumonia (recurrent)
CPT/HCPCS: 36415; 50590; 80053; 84702; 85025; 85610; 85730; J2371; J2704; J3010; J7030

== ENCOUNTER → 2024-05-29 | Day surgery (SDC) | payer OTHER, MEDICAID ==
[2024-05-24 10:05] LABS: Basophils # (auto) 0 10 ^3/uL (0-0.2); Basophils % (auto) 0.4 % (0.0-2.0); Eosinophils # (auto) 0.1 10 ^3/uL (0-0.8); Eosinophils % (auto) 0.8 % (0.0-7.0); Hematocrit 30.3 % (36.0-46.0); Hemoglobin 9.8 g/dL (12.2-16.2); Lymphocytes # (auto) 2.5 10 ^3/uL (0.4-5.4); Lymphocytes % (auto) 29.6 % (10.0-50.0); Mean Corpuscular Hemoglobin 30.4 pg (28.0-32.0); Mean Corpuscular Hgb Conc. 32.2 g/dL (32.0-36.0); Mean Corpuscular Volume 94.5 fL (80.0-100.0); Monocytes # (auto) 1.5 10 ^3/uL (0-1.3); Neutrophils # (auto) 4.5 10 ^3/uL (1.6-8.6); Neutrophils % (auto) 52.2 % (37.0-80.0); Nucleated Red Blood Cells % 0.1 %; Platelet Count (auto) 265 10^3/uL (140-450); Red Blood Cells 3.21 10^6/uL (4.0-5.20); White Blood Cell 8.6 10^3/uL (4.4-10.8)
[2024-05-24 10:18] LABS: INR 1.06 (0.9-1.15); Partial Thromboplastin Time 30.4 SEC (24.5-34.5); Prothrombin Time 11.2 sec (9.3-11.8)
[2024-05-24 10:19] LABS: Albumin 3.3 g/dL (3.2-4.8); Alkaline Phosphatase 72 U/L (46-116); Anion Gap 7 (5-15); Aspartate Aminotransferase < 8 U/L (13-40); BUN/Creatinine Ratio 19.6 (10.0-20.0); Bilirubin, Total < 0.2 mg/dL (0.2-1.0); Blood Urea Nitrogen 20 mg/dL (9-23); Calcium 9.1 mg/dL (8.7-10.4); Carbon Dioxide 24 mmol/L (20-30); Chloride 114 mmol/L (98-107); Glucose 105 mg/dL (74-106); Potassium 3.6 mmol/L (3.5-5.1); Sodium 145 mmol/L (136-145); Total Protein 7.3 g/dL (5.7-8.2)
[2024-05-24 10:21] LABS: Alanine Aminotransferase < 9 U/L (7-40)
[~2024-05-29] VITALS: Ht 177.8 cm; Wt 77.1 kg
[~2024-05-29] MED LIST changes: +DexAMETHasone SOD PHOS 10MG/1ML VIAL INJ ONE; +MEPERIDINE HCL (25 MG/ML) 1ML VIAL ONE; +MIDAZOLAM HCL 2MG/2ML 2ml VIAL (1mg/ml) ONE; +PROPOFOL 10 MG/ML 20 ML IV ONE; +fentaNYL CITRATE 100 MCG/2 ML VL ONE
[2024-05-29] MEDS: ceFAZolin 2 GM/D5W50ml 50 ML IV ONE (09:00)
[2024-05-29 10:09] VITALS: PULSE 88; RESP 18; O2SAT 98
[2024-05-29 10:50] VITALS: BP 130/82; PULSE 72; RESP 16; O2SAT 95
== END | disposition home or self-care (01) ==
LOC: SUR 07:54
PROVIDERS: ATTEND Urology
DX: N20.0 Calculus of kidney (principal); I95.9 Hypotension, unspecified; G40.909 Epilepsy, unspecified, not intractable, without status epilepticus; Z87.01 Personal history of pneumonia (recurrent); Z87.820 Personal history of traumatic brain injury; Z86.2 Personal history of diseases of the blood and blood-forming organs and certain disorders involving the immune mechanism; Z98.890 Other specified postprocedural states
CPT/HCPCS: 36415; 50590; 80053; 84702; 85025; 85610; 85730; J0690; J1100; J2175; J2250; J2704; J3010

== ENCOUNTER 2024-06-06 13:19 | Emergency (ER) | payer OTHER, MEDICAID ==
[~2024-06-06] VITALS: Ht 154.9 cm; Wt 56.8 kg
[~2024-06-06 13:19] MED LIST changes: -DexAMETHasone SOD PHOS 10MG/1ML VIAL INJ ONE; -MEPERIDINE HCL (25 MG/ML) 1ML VIAL ONE; -MIDAZOLAM HCL 2MG/2ML 2ml VIAL (1mg/ml) ONE; -PROPOFOL 10 MG/ML 20 ML IV ONE; -fentaNYL CITRATE 100 MCG/2 ML VL ONE
[2024-06-06 13:35] VITALS: PULSE 79; RESP 15; O2SAT 95
[2024-06-06 14:46] LABS: Hematocrit 30.2 % (36.0-46.0); Hemoglobin 9.8 g/dL (12.2-16.2); Mean Corpuscular Hemoglobin 30.8 pg (28.0-32.0); Mean Corpuscular Hgb Conc. 32.5 g/dL (32.0-36.0); Mean Corpuscular Volume 94.9 fL (80.0-100.0); Platelet Count (auto) 226 10^3/uL (140-450); Red Blood Cells 3.18 10^6/uL (4.0-5.20); Red Cell Distribution Width 15.4 % (11.8-14.3); White Blood Cell 7.9 10^3/uL (4.4-10.8)
[2024-06-06 14:49] LABS: Basophils % (manual) 0 (0.0-2.0); Blast Cells 0; Metamyelocytes % 0; Promyelocytes % 0; Reactive Lymphocytes 0
[2024-06-06 15:15] LABS: Albumin 3.2 g/dL (3.2-4.8); Alkaline Phosphatase 66 U/L (46-116); Anion Gap 9 (5-15); Aspartate Aminotransferase < 8 U/L (13-40); BUN/Creatinine Ratio 16.8 (10.0-20.0); Bilirubin, Total < 0.2 mg/dL (0.2-1.0); Blood Urea Nitrogen 16 mg/dL (9-23); Calcium 8.4 mg/dL (8.7-10.4); Carbon Dioxide 21 mmol/L (20-30); Chloride 113 mmol/L (98-107); Glucose 78 mg/dL (74-106); Potassium 3.9 mmol/L (3.5-5.1); Sodium 143 mmol/L (136-145)
[2024-06-06 15:16] LABS: Total Protein 7.4 g/dL (5.7-8.2)
[2024-06-06 15:17] LABS: Alanine Aminotransferase < 9 U/L (7-40)
[2024-06-06 15:36] LABS: Band Neutrophils % (manual) 2; Eosinophils % (manual) 1 (0-7); Lymphocytes % (manual) 39 (10.0-50.0); Monocytes % (manual) 8 (0-12); Myelocytes % 1; Platelet Estimate Adequate
[2024-06-06 15:37] LABS: RBC Morphology Normal
[2024-06-06 17:24] LABS: Urine Blood Negative /uL (Negative); Urine Clarity Ex.Turbid (Clear); Urine Color Light-Orange (Yellow); Urine Protein, UAD 2+ (Negative); Urine Specific Gravity 1.031 (1.001-1.035); Urine Urobilinogen Normal (Negative); Urine pH 6.5 (5.0-9.0)
[2024-06-06] MEDS ORDERED: CEPH250C PO (17:45)
[2024-06-06] MEDS: cefTRIAXone 1GM/50ML D5W 50 ML IV ONE (19:58)
[2024-06-06 20:00] VITALS: BP 115/66; PULSE 78; RESP 16; O2SAT 100
[2024-06-06 21:14] VITALS: TEMP 100.4
[2024-06-06] MEDS: ACETAMINOPHEN 650 mg PER 20.3 mL UD PO ONE (21:14)
== END 2024-06-06 21:22 | disposition home or self-care (01) ==
LOC: EDBD 13:19 → ER 13:19
DX: N39.0 Urinary tract infection, site not specified (principal); R55 Syncope and collapse; J02.9 Acute pharyngitis, unspecified; J45.909 Unspecified asthma, uncomplicated; Z87.442 Personal history of urinary calculi; Z79.899 Other long term (current) drug therapy
CPT/HCPCS: 36415; 70450; 71045; 80053; 81003; 82962; 85007; 85027; 93005; 96365; 99285; J0696

== ENCOUNTER 2024-12-27 08:08 | Day surgery (SDC) | payer OTHER, MEDICAID ==
[2024-12-24 14:33] LABS: Basophils # (auto) 0 10 ^3/uL (0-0.2); Basophils % (auto) 0.5 % (0.0-2.0); Eosinophils # (auto) 0.4 10 ^3/uL (0-0.8); Eosinophils % (auto) 5.6 % (0.0-7.0); Hematocrit 39.3 % (36.0-46.0); Hemoglobin 13.2 g/dL (12.2-16.2); Lymphocytes # (auto) 3.2 10 ^3/uL (0.4-5.4); Lymphocytes % (auto) 39.6 % (10.0-50.0); Mean Corpuscular Hemoglobin 33.8 pg (28.0-32.0); Mean Corpuscular Hgb Conc. 33.5 g/dL (32.0-36.0); Mean Corpuscular Volume 100.8 fL (80.0-100.0); Monocytes # (auto) 0.5 10 ^3/uL (0-1.3); Monocytes % (auto) 6.8 % (0.0-12.0); Neutrophils # (auto) 3.8 10 ^3/uL (1.6-8.6); Neutrophils % (auto) 47.5 % (37.0-80.0); Platelet Count (auto) 152 10^3/uL (140-450); Red Cell Distribution Width 13.5 % (11.8-14.3)
[2024-12-24 14:41] LABS: INR 1.11 (0.9-1.15); Partial Thromboplastin Time 31.6 SEC (24.5-34.5); Prothrombin Time 11.6 sec (9.3-11.8)
[2024-12-24 15:33] LABS: Albumin 3.9 g/dL (3.2-4.8); Alkaline Phosphatase 71 U/L (46-116); Anion Gap 10 (5-15); BUN/Creatinine Ratio 13.8 (10.0-20.0); Blood Urea Nitrogen 13 mg/dL (9-23); Calcium 9.5 mg/dL (8.7-10.4); Potassium 3.9 mmol/L (3.5-5.1); Sodium 141 mmol/L (136-145); Total Protein 7.5 g/dL (5.7-8.2)
[2024-12-24 15:48] LABS: Alanine Aminotransferase < 9 U/L (7-40); Aspartate Aminotransferase < 8 U/L (13-40); Bilirubin, Total 0.2 mg/dL (0.2-1.0); Carbon Dioxide 19 mmol/L (20-31); Chloride 112 mmol/L (98-107); Glucose 70 mg/dL (74-106)
[~2024-12-27] VITALS: Ht 177.8 cm; Wt 77.1 kg
[~2024-12-27 08:08] MED LIST changes: +ceFAZolin 2 GM/D5W100ml 100 ML IV ONE
[2024-12-27] MEDS ORDERED: KETAMINE 50mg/ML 1ml syringe ONE (10:28)
[2024-12-27] MEDS ORDERED: fentaNYL CITRATE 100 MCG/2 ML VL ONE (10:28)
[2024-12-27] MEDS ORDERED: MIDAZOLAM HCL 2MG/2ML 2ml VIAL (1mg/ml) ONE (10:28)
[2024-12-27] MEDS ORDERED: PROPOFOL 10 MG/ML 20 ML IV ONE (10:29)
[2024-12-27] MEDS ORDERED: KETOROLAC TROMETH 30 MG/ML 1ML VIAL ONE (10:29)
[2024-12-27] MEDS ORDERED: ONDANSETRON HCL 4 MG/2 ML VIAL ONE (10:29)
[2024-12-27] MEDS ORDERED: DexAMETHasone SOD PHOS 10MG/1ML VIAL INJ ONE (10:29)
[2024-12-27] MEDS ORDERED: LIDOCAINE 2% (LOCAL ANESTH.) PF 5ml SDV ONE (10:29)
[2024-12-27] MEDS ORDERED: GLYCOPYRROLATE 0.2 MG/ML 1ML VIAL ONE (10:29)
--- NOTE | 2024-12-27 12:00 | DVHNC2 ---
Procedure - OPERATIVE REPORT Pre-op. Diagnosis: Renal Stone Post-op. Diagnosis: Same as pre-op diagnosis Operation: Extracorporeal Shockwave Lithotripsy Anesthesia: General Indications: Patient was found to have symptomatic Urolithiasis. Patient is here to undergo ESWL therapy. Informed Consent: The procedure was explained to the patient. It's risks include but not limited to infection, bleeding, and damage to the kidney. Patient fully understood and signed the consent. Other options such as watchful waiting, Ureteroscopy, Percutaneous surgery and open surgery were also discussed. Details of Procedure: Under satisfactory anesthesia, the patient was positioned on the lithotripsy table. Using fluoroscopy the stone was localized. Starting at low energy levels, shockwave treatment was commenced. The energy level was gradually increased and stone was fragmented. Once the treatment was completed, patient was then taken off the lithotripsy table and sent to recovery room in stable condition. Specimens: None Complications: None Findings: Stone Laterality: right upper calyceal stone Shocks Delivered: [address] [employer] settin Fragmentation Quality: Well Notes: Patient may need additional ESWL vs. endoscopic laser lithotripsy Visit Code: Procedure Codes: 91867 FRAGMENTING OF KIDNEY STONE. notesEligibility :2024-12-26 @ 21:31:12 PDT : Cannot Process; notesEligibility :2024-12-26 @ 21:01:50 PDT : Eligible : Eligible;. ROMULO BARON MD Dec 27, 2024 11:59
--- NOTE | 2024-12-27 12:00 | DVHDS2 ---
New Physician D'charge PN Admitting Diagnosis Admitting Diagnosis Right nephrolithiasis Discharge Diagnosis Same Operations or Procedures Right extracorporeal shockwave lithotripsy Reason(s) For Hospitalization Surgery Treatment Plan Discharge Condition of Discharge Fair Disposition Home Discharge Instructions Diet: Regular Activity: Light activity Activity comment: As tolerated Medications: Given Follow Up Care Follow Up/Referral: Repeat CT scan in one month Discharge Statement: "Patient was advised to return to the ER or call 911 if any headaches, dizziness, shortness of breath, chest pain, abdominal pain, bleeding, fevers, or worsening of medical condition. Patient was counseled about treatment plan, medications, possible side effects, patientverbalized understanding. All questions were answered to the best of my ability. This discharge took greater then 30 minutes in planning, reviewing documentation, counseling the patient, and discussing with other team members." ROMULO BARON MD Dec 27, 2024 12:00
[2024-12-27 12:11] VITALS: PULSE 79; RESP 11; TEMP 97.9; O2SAT 100
[2024-12-27] MEDS ORDERED: HYDROmorphone HCL 2 MG/ML VL/or syr IV PRN (12:30)
[2024-12-27 12:56] VITALS: BP 109/71; PULSE 75; RESP 12; O2SAT 100
== END 2024-12-27 13:11 | disposition home or self-care (01) ==
LOC: SUR 08:08
PROVIDERS: ATTEND Urology
DX: N20.0 Calculus of kidney (principal); Z98.890 Other specified postprocedural states
CPT/HCPCS: 36415; 50590; 80053; 84702; 85025; 85610; 85730; J1100; J1885; J2003; J2250; J2405; J2704; J3010